=== PATIENT | female | born 1925 | race Caucasian/White ===

== ENCOUNTER 2016-09-20 21:46 | Inpatient (IN) | payer MEDICARE, BC ==
[2016-09-20] MEDS ORDERED: RX INFO: IV CONTRAST WAS GIVEN 1 EACH MISC MISCELLANE PRN (21:51)
[2016-09-20] MEDS ORDERED: SODIUM CHLORIDE 0.9% 1,000 ML IV STA (21:51)
[2016-09-20 22:22] LABS: Glucose,Whole Blood 167 mg/dL (75-99)
[2016-09-20 22:26] LABS: Basophils # (A) 0.1 k/uL (0-0.2); Basophils % (A) 2 %; CH 29.5; CHCM 33.6; Eosinophils # (A) 0.1 k/uL (0-0.7); Eosinophils % (A) 1 %; HCT 35.6 % (34.0-46.0); HGB 11.7 gm/dL (11.4-16.0); Luc # (Auto) 0.05; Luc % (Auto) 1; Lymphocytes # (A) 0.6 k/uL (1.0-4.8); Lymphocytes % (A) 15 %; MCH 28.9 pg (25.0-35.0); MCHC 32.8 g/dL (31.0-37.0); MCV 88.3 fL (80.0-100.0); Mean Platelet Volume 7.6; Monocytes # (A) 0.4 k/uL (0-1.0); Monocytes % (A) 8 %; Neutrophils # (A) 3.1 k/uL (1.3-7.7); Neutrophils % (A) 73 %; RBC 4.03 m/uL (3.80-5.40); RDW 14.4 % (11.5-15.5); WBC 4.3 k/uL (3.8-10.6); WBC (Perox) 4.59
--- NOTE | 2016-09-20 22:26 | CT ---
EXAMINATION TYPE: CT brain wo con DATE OF EXAM: 09/20/2016 10:06 PM COMPARISON: MRI brain 05/03/2016 HISTORY: Code stroke. History of neural deficits CT DLP: 1284.9 mGycm Automated exposure control for dose reduction was used. FINDINGS: There is increased subarachnoid space in the left frontal temporal parietal area compared to right an d is most likely chronic in nature without significant change since previous MRI study of 05/03/2016 a nd is probably related to atrophic changes of left cerebral hemisphere. There is also increased subar achnoid space in the right frontal area including right side of falx probably related to asymmetric a trophic changes of the brain. The cortical sulci and ventricles are prominent with age-related atrophic changes and chronic changes . Periventricular white matter ischemic changes are noted bilaterally of chronic nature. Old infarcti on changes are suggested in the left temporal parietal area with adjacent atrophic changes of brain. There is also evidence of moderate hypertrophic changes of cerebellum more on the left side. There is no acute intracranial hemorrhage, mass effect, or midline shift identified. The globes are intact and the visualized sinuses are clear. IMPRESSION: No acute intracranial hemorrhage, mass effect, or midline shift is seen. Atrophic changes of brain of chronic nature without significant change since previous MRI study. Compliance Clerk summer white matter ischemic changes. Suggestion of old infarction changes in the left temporal area. Po ssibility of old inflammatory or infectious process of brain cannot be excluded. If clinical symptoms persist a follow-up with MRI or CT scan in 24 to 48 hours may be helpful.
--- NOTE | 2016-09-20 22:28 | ED ---
General Adult HPI - General Chief complaint: Neuro Symptoms/Deficit Stated complaint: CVA symptoms Time Seen by Provider: 09/20/16 21:50 Source: patient, EMS, RN notes reviewed Mode of arrival: EMS Limitations: physical limitation - History of Present Illness Initial comments: Patient is a pleasant 89-year-old female presenting to emergency Department with left-sided weakness. Onset was between 8:30 and 840. Patient got up from using the restroom and was unable to walk. EMS arrived and found near flaccid paralysis on the left side. Left upper and lower extremity. Patient had questionable left facial droop. Patient denies confusion. No reported confusion or speech problems. EMS reports patient symptoms have dramatically improved since original arrival. Patient states she feels normal at this time. - Related Data Home Medications Medication Instructions Recorded Confirmed Omeprazole [PriLOSEC] 20 mg PO AC-BRKFST 06/08/14 07/10/14 PARoxetine [Paxil] 20 mg PO DAILY 07/10/14 07/10/14 Previous Rx's Medication Instructions Recorded Atorvastatin [Lipitor] 80 mg PO DAILY #30 tab 06/10/14 Clopidogrel [Plavix] 75 mg PO DAILY #30 tab 06/10/14 Isosorbide Mononitrate [Ismo] 20 mg PO BID@0700,1400 #60 tab 06/10/14 Metoprolol Tartrate [Lopressor] 25 mg PO BID #60 tab 06/10/14 Nitroglycerin Sl Tabs [Nitrostat] 0.4 mg SUBLINGUAL Q5M PRN #25 tab 06/10/14 ALPRAZolam [Xanax] 0.25 mg PO TID PRN #30 tab 07/11/14 Aspirin EC [Ecotrin] 81 mg PO DAILY #30 tablet. 07/11/14 Allergies Allergy/AdvReac Type Severity Reaction Status Date / Time Penicillins Allergy Rash/Hives Verified 07/10/14 20:56 Review of Systems ROS Statement: Those systems with pertinent positive or pertinent negative responses have been documented in the HPI. ROS Other: All systems not noted in ROS Statement are negative. Constitutional: Denies: fever Eyes: Denies: eye pain ENT: Denies: ear pain Respiratory: Denies: cough Cardiovascular: Denies: chest pain Endocrine: Denies: fatigue Gastrointestinal: Denies: abdominal pain Genitourinary: Denies: dysuria Musculoskeletal: Denies: back pain Skin: Denies: rash Neurological: Reports: weakness, abnormal gait. Denies: headache, numbness, paresthesias, confusion Past Medical History Past Medical History: GERD/Reflux, Hyperlipidemia, Hypertension, Myocardial Infarction ([place]), Osteoarthritis (OA) Additional Past Medical History / Comment(s): UTI Last Myocardial Infarction Date:: UNK History of Any Multi-Drug Resistant Organisms: None Reported Past Surgical History: Heart Catheterization, Hysterectomy Additional Past Surgical History / Comment(s): cataracts Past Anesthesia/Blood Transfusion Reactions: Motion Sickness Past Psychological History: Anxiety Additional Psychological History / Comment(s): PAXIL Smoking Status: Never smoker Past Alcohol Use History: None Reported Past Drug Use History: None Reported - Past Family History Father Family Medical History: Unable to Obtain Additional Family Medical History / Comment(s): AT AGE 60 UNSURE OF HX, BLEEDING ULCERS Mother Family Medical History: CVA/TIA, Hyperlipidemia, Hypertension Additional Family Medical History / Comment(s): AT AGE 87 General Exam Limitations: physical limitation General appearance: alert, in no apparent distress Head exam: Present: atraumatic Eye exam: Present: normal appearance, PERRL, EOMI. Absent: nystagmus ENT exam: Present: normal oropharynx Neck exam: Present: normal inspection Respiratory exam: Present: normal lung sounds bilaterally Cardiovascular Exam: Present: regular rate, normal rhythm GI/Abdominal exam: Present: soft. Absent: tenderness Extremities exam: Present: normal inspection Neurological exam: Present: alert, oriented X3, CN II-XII intact Expanded Patient oriented to: Present: person, place, time Speech: Present: fluid speech Cranial nerves: EOM's Intact: Normal, Facial Sensation: Normal Cerebellar function: Finger to Nose: Normal Sensory exam: Upper Extremity Light Touch: Normal, Lower Extremity Light Touch: Normal Motor strength exam: RUE: 5, LUE: 4, RLE: 5, LLE: 4 Eye Response: (4) open spontaneously Motor Response: (6) obeys commands Verbal Response: (5) oriented Psychiatric exam: Present: normal affect, normal mood Skin exam: Absent: rash Course Vital Signs 09/20/16 09/20/16 21:47 22:05 Temperature 98.1 F Pulse Rate 69 69 Respiratory 16 16 Rate Blood Pressure 138/87 163/70 O2 Sat by Pulse 99 100 Oximetry - Reevaluation(s) Reevaluation #1: 09/20/16 22:16 Case discussed with interventional list, Dr. Mina who agrees TPA is not indicated secondary to rapid improving of symptoms and minimal symptoms. He is also concerned with TPA and age EKG Findings - EKG Comments: EKG Findings:: Normal sinus rhythm 66. Normal intervals. Normal axis. Normal QRS. Normal ST-T. Medical Decision Making - Medical Decision Making Patient reexamined and even further improved. Patient updated on results and plan. Case was discussed with practitioner Lashaun gomez, who will admit for Dr. Garsia, covering for Dr. Boo. - Lab Data Result diagrams: 09/20/16 22:14 09/20/16 22:14 Lab Results 09/20/16 09/20/16 09/20/16 Range/Units 22:14 22:14 22:21 WBC 4.3 (3.8-10.6) k/uL RBC 4.03 (3.80-5.40) m/uL Hgb 11.7 (11.4-16.0) gm/dL Hct 35.6 (34.0-46.0) % MCV 88.3 (80.0-100.0) fL MCH 28.9 (25.0-35.0) pg MCHC 32.8 (31.0-37.0) g/dL RDW 14.4 (11.5-15.5) % Plt Count 187 (150-450) k/uL Neutrophils % 73 % Lymphocytes % 15 % Monocytes % 8 % Eosinophils % 1 % Basophils % 2 % Neutrophils # 3.1 (1.3-7.7) k/uL Lymphocytes # 0.6 L (1.0-4.8) k/uL Monocytes # 0.4 (0-1.0) k/uL Eosinophils # 0.1 (0-0.7) k/uL Basophils # 0.1 (0-0.2) k/uL Sodium 135 L (137-145) mmol/L Potassium 4.8 (3.5-5.1) mmol/L Chloride 102 (98-107) mmol/L Carbon Dioxide 22 (22-30) mmol/L Anion Gap 11 mmol/L BUN 27 H (7-17) mg/dL Creatinine 1.07 H (0.52-1.04) mg/dL Est GFR (MDRD) Af Amer 59 (>60 ml/min/1.73 sqM) Est GFR (MDRD) Non-Af 48 (>60 ml/min/1.73 sqM) Glucose 162 H (74-99) mg/dL POC Glucose (mg/dL) 167 H (75-99) mg/dL POC Glu Wallpaper Cleaner ID Dori Gomez Calcium 8.1 L (8.4-10.2) mg/dL Total Bilirubin 0.5 (0.2-1.3) mg/dL AST 30 (14-36) U/L ALT 29 (9-52) U/L Alkaline Phosphatase 87 (38-126) U/L Total Protein 5.8 L (6.3-8.2) g/dL Albumin 3.3 L (3.5-5.0) g/dL - Radiology Data Radiology results: image reviewed (Computed tomography scan shows atrophy and chronic changes without acute abnormality. CT angios shows some stenosis, up to 70%. ) Disposition Clinical Impression: Transient cerebral ischemia Disposition: ADMITTED IP TO THIS HOSP
[2016-09-20 22:33] LABS: Calcium 8.1 mg/dL (8.4-10.2); Potassium 4.8 mmol/L (3.5-5.1); Total Bilirubin 0.5 mg/dL (0.2-1.3); Total Protein 5.8 g/dL (6.3-8.2)
[2016-09-20 22:42] LABS: Prothrombin Time 10.5 sec (9.0-12.0)
--- NOTE | 2016-09-20 22:43 | CT ---
EXAMINATION TYPE: CT angio head neck DATE OF EXAM: 09/20/2016 10:19 PM COMPARISON: CT brain 09/20/2016. HISTORY: Code stroke CT DLP: 1284.9 mGycm Automated exposure control for dose reduction was used. TECHNIQUE: Performed with IV Contrast, patient injected with 100 mL of Visipaque 320. Multiple axial images, coronal and the sagittal reconstruction images and 3-D MIP images of the head and neck arterial structures was performed. FINDINGS: CTA head: [place] arterial structures appear grossly unremarkable including anterior cerebral, mid dle and posterior cerebral arteries, visualized anterior communicating and posterior communicating ar teries without significant aneurysm, AV malformation or stenosis. CTA NECK: Aortic arch: Mild atherosclerotic calcification is noted in the aortic arch. The origins of great ve ssels showed mild atheromatous changes without significant aneurysm. Right carotid artery: Right common carotid artery appears unremarkable. Right carotid bulb showed mild to moderate atherosclerotic plaques with extension into the right int ernal and external carotid arteries. There is approximately less than 50% narrowing in the right [place] tid bulb. Right internal carotid artery: There is less than 50% narrowing in the right internal carotid artery with atheromatous calcification. Right external carotid artery: There are severe atherosclerotic plaques with greater than 70% stenosi s in the right external carotid artery. Left carotid artery: Left common carotid artery showed no significant atheromatous changes. Left carotid bulb showed mild atheromatous plaques with less than 50% narrowing. Left internal carotid artery showed mild atheromatous changes with a less than 50% narrowing in the p roximal portion. Left external carotid artery showed mild atheromatous changes with a less than 50% narrowing in the p roximal portion. Vertebral arteries: Appear unremarkable without significant stenosis. Visualized lung rodríguez showed chronic lung changes. Soft tissues of neck appear grossly unremarkable. Moderate degenerative changes are present in the cervical spine. IMPRESSION: 1. [place] ARTERIAL STRUCTURES APPEAR GROSSLY UNREMARKABLE. 2. SEVERE ATHEROSCLEROTIC CALCIFICATION IN THE RIGHT PROXIMAL EXTERNAL CAROTID ARTERY WITH GREATER TH AN 70% STENOSIS. 3. MILD TO MODERATE ATHEROMATOUS CHANGES WITH A LESS THAN 50% NARROWING IN THE RIGHT INTERNAL CAROTI D ARTERY. 4. MILD TO MODERATE ATHEROMATOUS CHANGES WITH A LESS THAN 50% NARROWING IN THE LEFT CAROTID BULB AND LEFT INTERNAL AND EXTERNAL CAROTID ARTERIES IN THE PROXIMAL PORTION.
[2016-09-20] MEDS ORDERED: ASPIRIN 325 MG TAB PO STA (22:50)
[2016-09-20 22:55] LABS: Creatine Kinase MB 0.9 ng/mL (0.0-2.4); Troponin I 0.021 ng/mL (0.000-0.034)
[2016-09-20 22:57] LABS: Partial Thromboplastin Time 19.2 sec (22.0-30.0)
--- NOTE | 2016-09-20 23:34 | XR ---
EXAMINATION TYPE: XR chest 1V portable DATE OF EXAM: 09/20/2016 11:19 PM COMPARISON: 07/10/2014 HISTORY: Code stroke AMS. TECHNIQUE: Single frontal view of the chest is obtained. FINDINGS: There is mild opacities in both lung bases suggestive of mild bilateral pleural effusions and bibasil ar lung infiltrates and atelectasis. There is mild cardiomegaly and atherosclerotic calcification in the aortic arch. Mild degenerative arthritic changes in both shoulder joints. IMPRESSION: 1. Suggestion of mild bilateral pleural effusions and bibasilar lung infiltrates and atelectasis. 2. Mild cardiomegaly.
[2016-09-20] MEDS: SODIUM CHLORIDE 0.9% 1,000 ML IV SCH (23:36)
[2016-09-21 00:20] VITALS: BMI 25.7
[2016-09-21] MEDS ORDERED: LISINOPRIL 10 MG TAB PO STA (01:23)
[2016-09-21] MEDS: SODIUM CHLORIDE 0.9% 1,000 ML IV SCH ×2 (10:09→20:30)
--- NOTE | 2016-09-21 10:23 | US ---
EXAMINATION TYPE: US carotid duplex BILAT DATE OF EXAM: 09/21/2016 8:32 AM COMPARISON: CTA neck from yesterday. CLINICAL HISTORY: TIA. Admitted for neuro deficits one day earlier. EXAM MEASUREMENTS: RIGHT: Peak Systolic Velocity (PSV) cm/sec ----- Right CCA: 42.4 ----- Right ICA: 81.4 ----- Right ECA: 103.6 ICA/CCA ratio: 1.9 RIGHT: End Diastole cm/sec ----- Right CCA: 7.3 ----- Right ICA: 19.5 ----- Right ECA: 6.9 LEFT: Peak Systolic Velocity (PSV) cm/sec ----- Left CCA: 47.2 ----- Left ICA: 114.9 ----- Left ECA: 61.3 ICA/CCA ratio: 2.4 LEFT: End Diastole cm/sec ----- Left CCA: 10.2 ----- Left ICA: 23.1 ----- Left ECA: 7.4 VERTEBRALS (direction of flow): Right Vertebral: Antegrade Left Vertebral: Antegrade TECHNOLOGIST IMPRESSION: Heterogeneous plaque seen bilaterally. Grayscale images show moderate plaque at right carotid bulb extending into proximal internal and exte rnal carotid arteries confirmed. Velocity measurements and ratios in visualized portion of both inter nal and external carotid arteries is within normal limits. Imaging of the left neck shows similar moderate plaque at carotid bulb extending into proximal director internal communications al and external carotid arteries. Velocity measurements and ratios the visualized portion of both internal carotid arteries remains wit hin normal limits. Slightly more tortuous course to left internal carotid artery is seen on recent CT A exam. IMPRESSION: Moderate atherosclerotic change in bilateral carotid bulbs without hemodynamically signi ficant stenosis identified in either internal carotid artery. Findings correlate with recent CTA neck study which is noted more sensitive. Criteria for Assigning % of Stenosis / Diameter reduction (Estimation based on the indirect measurements of the internal carotid artery velocities (ICA PSV). 1. Normal (no stenosis)=ICA PSV < 125 cm/s: ratio < 2.0: ICA EDV<40 cm/s. 2. Less than 50% stenosis=ICA PSV < 125 cm/s: ratio < 2.0: ICA EDV<40 cm/s. 3. 50 to 69% stenosis=ICA PSV of 125 to 230 cm/s: ration 2.0 ? 4.0: ICA EDV 40-100 cm/s. 4. Greater than 70% stenosis to near occlusion= ICA PSV > 230 cm/s: ratio > 4.0: ICA EDV > 100 cm/s. 5. Near occlusion= ICA PSV velocities may be low or undetectable: variable ratio and ICA EDV. 6. Total occlusion=unable to detect flow.
--- NOTE | 2016-09-21 10:29 | ECHOF ---
Referral Reason:Thrombus MEASUREMENTS -------- HEIGHT: 162.6 cm WEIGHT: 68.0 kg BP: IVSd: 1.5 cm (0.6 - 1.1) LVIDd: 3.6 cm (3.9 - 5.3) LVPWd: 1.3 cm (0.6 - 1.1) IVSs: 1.8 cm LVIDs: 1.0 cm LVPWs: 1.6 cm Ao Diam: 3.1 cm (2.0 - 3.7) AV Cusp: 1.3 cm (1.5 - 2.6) LA Diam: 3.9 cm (2.7 - 3.8) MV EXCURSION: 10.759 mm (> 18.000) MV EF SLOPE: 102 mm/s (70 - 150) EPSS: 0.8 cm MV E Juanito: 0.53 m/s MV DecT: 299 ms MV A Juanito: 1.11 m/s MV E/A Ratio: 0.48 RAP: 5.00 mmHg RVSP: 9.20 mmHg FINDINGS -------- Sinus rhythm. This was a technically good study. There is mild concentric left ventricular hypertrophy. Overall left ventricular systolic function is normal with, an EF between 55 - 60 %. The right ventricle is normal in size and function. The left atrium is normal in size. The right atrium is normal in size. Aortic valve is trileaflet and is mildly thickened. The mitral valve leaflets are mildly thickened. Mild mitral regurgitation is present. Mild tricuspid regurgitation present. Pulmonic valve appears structurally normal. The aortic root size is normal. The pericardium is normal. CONCLUSIONS -------- 1. Sinus rhythm. 2. Mild mitral regurgitation is present. 3. Mild tricuspid regurgitation present. 4. Pulmonic valve appears structurally normal. 5. The aortic root size is normal. 6. The pericardium is normal. 7. This was a technically good study. 8. There is mild concentric left ventricular hypertrophy. 9. Overall left ventricular systolic function is normal with, an EF between 55 - 60 %. 10. The right ventricle is normal in size and function. 11. The left atrium is normal in size. 12. The right atrium is normal in size. 13. Aortic valve is trileaflet and is mildly thickened. 14. The mitral valve leaflets are mildly thickened. SURVEILLANCE MANAGER: Ami Cleveland RDCS
[2016-09-21] MEDS ORDERED: NON-FORMULARY DRUG (Aspirin Ec 81 MG) PO SCH (10:30)
[2016-09-21] MEDS: CLOPIDOGREL 75 MG TAB PO SCH (10:53)
[2016-09-21] MEDS: NITROFURANTOIN MONOHYD/M-CRYST 100 MG CAP PO SCH (10:53)
--- NOTE | 2016-09-21 15:19 | P.HPIM ---
History of Present Illness H&P Date: 09/21/16 Chief Complaint: Left-sided weakness 89-year-old female with history of a previous stroke comes in to the hospital with left-sided place of paralysis the onset of time was around 8:30 in the AM. Patient improved significantly without any intervention in the ER. Patient apparently has a history of a similar episode in the past. Patient underwent MRI of the brain in June 2016 at which time patient was noted to have some concern for autoimmune etiology in the brain. Patient underwent a autoimmune panel done by Dr. Taylor rheumatoid factor was negative in a appears to be negative. There is some degree of B12 deficiency that is noted on the laboratory values. Patient stated that her left-sided weakness with sudden onset caused her gait to be in appropriate denies having any change in speech. Patient also noted some weakness on the left upper extremity. Her graft ER physician's note was noted to have some facial droop as well in addition to the above-described symptomatology. At the time of my examination patient appears to be within her normal self. Denies having a headache, blurry vision, nausea, vomiting, chest pressure, difficulty breathing at this time. A carotid study did not reveal a significant stenosis. Echocardiogram revealed a normal ejection fraction. Review of Systems All systems: negative (Noted in HPI) Past Medical History Past Medical History: GERD/Reflux, Hyperlipidemia, Hypertension, Myocardial Infarction ([place]), Osteoarthritis (OA) Additional Past Medical History / Comment(s): UTI Last Myocardial Infarction Date:: UNK History of Any Multi-Drug Resistant Organisms: None Reported Past Surgical History: Heart Catheterization, Hysterectomy Additional Past Surgical History / Comment(s): cataracts Past Anesthesia/Blood Transfusion Reactions: Motion Sickness Past Psychological History: Anxiety Additional Psychological History / Comment(s): PAXIL Smoking Status: Never smoker Past Alcohol Use History: None Reported Past Drug Use History: None Reported - Past Family History Father Family Medical History: Unable to Obtain Additional Family Medical History / Comment(s): AT AGE 60 UNSURE OF HX, BLEEDING ULCERS Mother Family Medical History: CVA/TIA, Hyperlipidemia, Hypertension Additional Family Medical History / Comment(s): AT AGE 87 Medications and Allergies Home Medications Medication Instructions Recorded Confirmed Type Omeprazole [PriLOSEC] 20 mg PO AC-BRKFST 06/08/14 09/21/16 History ALPRAZolam [Xanax] 0.25 mg PO DAILY PRN 09/21/16 09/21/16 History Aspirin EC [Ecotrin Low Dose] 81 mg PO DAILY 09/21/16 09/21/16 History Hydrochlorothiazide [Hydrodiuril] 25 mg PO DAILY 09/21/16 09/21/16 History Meclizine [Antivert] 12.5 mg PO TID PRN 09/21/16 09/21/16 History Metoprolol Tartrate [Lopressor] 50 mg PO BID 09/21/16 09/21/16 History Nitrofurantoin Monohyd/M-Cryst 100 mg PO DAILY 09/21/16 09/21/16 History [Macrobid] Allergies Allergy/AdvReac Type Severity Reaction Status Date / Time Penicillins Allergy Rash/Hives Verified 07/10/14 20:56 Physical Exam Vitals: Vital Signs Temp Pulse Resp BP BP Pulse Ox 09/21/16 11:12 97.4 F L 70 18 124/67 98 09/21/16 08:35 97.9 F 72 14 136/84 09/21/16 08:31 72 14 09/21/16 04:00 63 18 09/21/16 00:00 96.5 F L 63 18 185/81 96 09/20/16 23:41 191/92 09/20/16 23:05 16 167/76 99 Intake and Output 09/21/16 09/21/16 09/21/16 06:59 14:59 22:59 Intake Total 120 Output Total 400 400 Balance -400 -280 Intake: Oral 120 Output: Urine 400 400 Other: Voiding Method Toilet Diaper # Bowel Movements 1 Weight 68.3 kg Gen. appearance alert oriented 3 no distress Lungs good air entry clear to auscultation no rhonchi wheezing or crackles appreciated Heart S1-S2 heard regular rate and rhythm no murmurs appreciated Abdomen soft nontender no organomegaly bowel sounds intact Neurologically cranial nerves to till 12 grossly intact Muscle strength is 5 out of 5 in all 4 extremities. No sensory deficits appreciated Lower extremity is no edema noted. Results CBC & Chem 7: 09/20/16 22:14 09/20/16 22:14 Thrombosis Risk Factor Assmnt - Choose All That Apply Each Risk Factor Represents 3 Points: Age 75 years or older Thrombosis Risk Factor Assessment Total Risk Factor Score: 3 Thrombosis Risk Factor Assessment Level: Moderate Risk Assessment and Plan Plan: #1 89-year-old with left-sided weakness consistent with cerebral vascular accident of the right MCA region #2 CAD #3 history of abnormal MRI concerning for some autoimmune etiology #4 B12 deficiency #5 history of hypertension #6 dyslipidemia #7 history of peripheral vertigo. Plan Consult Dr. Taylor. Previous labs are reviewed. Carotid Doppler and echocardiogram were reviewed. Patient will be kept on a diabetes manager. ABCDs 2 score Continue ongoing care frequent neuro checks. Fall precautions. PT OT consult.
[2016-09-21] MEDS: LISINOPRIL 10 MG TAB PO SCH (20:29)
[2016-09-21] MEDS: METOPROLOL TARTRATE 50 MG TAB PO SCH (20:29)
--- NOTE | 2016-09-21 22:18 | CONS ---
DATE OF CONSULTATION: 09/21/2016 CHIEF COMPLAINT: Transient ischemic attack. HISTORY OF PRESENT ILLNESS: Mrs. Sargent is a pleasant 89-year-old, female who is being evaluated by the neurology service per the request of Dr. Garsia for a transient ischemic attack. The patient was brought into [facility] Emergency Room after she suffered a sudden onset of left-sided weakness. The patient believes the weakness involved her upper and lower extremity on the left side. In the emergency room, her symptoms started to improve significantly. A STAT CT scan of the brain was done which showed no acute findings. 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 Generalized atrophy and small-vessel ischemic changes were also seen. A CT angiogram of the brain was done which was normal. The patient did have a carotid Doppler which showed no hemodynamically significant stenosis. A CT angiogram of the neck was done which showed approximately 50% stenosis involving bilateral internal carotid arteries. Her CBC was normal. Her comprehensive metabolic profile showed mild renal insufficiency with a BUN of 27 and creatinine of 1.07. Her cardiac enzymes were negative. At the time of my evaluation, the patient is lying in her bed and appears to be in no acute distress. She reports resolution of her left-sided weakness. She denies any numbness or tingling. The patient was not on any antiplatelet therapy at home. She has been started on aspirin 81 mg daily on this admission. PAST MEDICAL HISTORY: 1. Stroke. 2. Gastroesophageal reflux disease. 3. Dyslipidemia. 4. Hypertension. 5. History of myocardial infarction. 6. Arthritis. 7. History of hysterectomy. 8. History of cataract surgeries. 9. The patient also has history of anxiety disorder. SOCIAL HISTORY: She denies any tobacco, alcohol or drug use. FAMILY HISTORY: Positive for strokes, hypertension and dyslipidemia. HOME MEDICATIONS: Reviewed in the chart. ALLERGIES: PENICILLIN. REVIEW OF SYSTEMS: CONSTITUTIONAL: Negative. EYES: Negative. ENT: Positive for chronic diminished hearing. CARDIOVASCULAR: Positive for history of myocardial infarction. RESPIRATORY: Negative. NEUROLOGICAL: As mentioned above. GASTROINTESTINAL: Positive for occasional heartburn. GENITOURINARY: Positive for recurrent urinary tract infections. PSYCHIATRIC: Positive for history of anxiety disorder. MUSCULOSKELETAL: Positive for occasional joint pain. ENDOCRINE: Negative. DERMATOLOGICAL: Negative. PHYSICAL EXAM: Vital signs show a temperature of 98.2, pulse 84, respiration 16, blood pressure of 183/89. GENERAL APPEARANCE: The patient is a well-developed, elderly female who appears to be in no acute distress. HEENT: Normocephalic, atraumatic. No facial asymmetry is seen. Extraocular muscles are intact. Neck is supple with no masses felt. CARDIOVASCULAR: Regular rate and rhythm. ABDOMEN: Nontender, nondistended. Extremities showed trace edema with no clubbing seen. NEUROLOGICAL EXAM: The patient is alert, aware and oriented x3. Speech and language are normal. Strength is full in all 4 extremities. No pronator drift is seen. Sensory exam was normal to light touch in all 4 extremities. No facial asymmetry is noticed on cranial nerve testing. No seizure-like activity is seen. IMPRESSION: 1. Transient ischemic attack. 2. Left hemiparesis, resolved. 3. Mild to moderate bilateral internal carotid artery stenosis. 4. Renal insufficiency. 5. Hypertension. 6. Dyslipidemia. RECOMMENDATION: The patient does appear to have suffered a transient ischemic attack. Her symptoms have resolved at this time. Her CT scan of the brain did show evidence of an old ischemic stroke, as mentioned above. It is unclear why the patient is not on any antiplatelet therapy. She has been started on aspirin 81 mg daily and she will continue on this after her discharge. I will order a fasting lipid panel, EEG, and serum homocysteine level. Continue IV hydration as tolerated. Continue neuro checks. I will continue to follow with you. Further recommendations to follow. Thank you for allowing me to participate in the care of your patient. If you have any questions, please feel free to contact me.
[2016-09-21] MEDS ORDERED: ASPIRIN 325 MG TAB PO SCH (22:51)
[2016-09-22 07:30] LABS: HDL Cholesterol 54 mg/dL (40-60); Triglycerides 156 mg/dL (<150)
[2016-09-22 07:54] LABS: Cholesterol 343 mg/dL (<200)
[2016-09-22] MEDS: SODIUM CHLORIDE 0.9% 1,000 ML IV SCH ×2 (09:21→17:24)
[2016-09-22] MEDS: NITROFURANTOIN MONOHYD/M-CRYST 100 MG CAP PO SCH (09:22)
[2016-09-22] MEDS: METOPROLOL TARTRATE 50 MG TAB PO SCH ×2 (09:22→22:18)
[2016-09-22] MEDS: CLOPIDOGREL 75 MG TAB PO SCH (09:23)
[2016-09-22] MEDS: ASPIRIN 81 MG CHEW PO SCH (09:23)
[2016-09-22] MEDS: ATORVASTATIN 80 MG TAB PO SCH (09:23)
--- NOTE | 2016-09-22 11:29 | CDI ---
In responding to this query, please exercise your independent professional judgment. The [facility] Coding Staff and Clinical Documentation Specialists appreciate your assistance in clarifying documentation, maintaining compliance with coding guidelines, accurately documenting patients condition and capturing severity of illness. The fact that a question is asked does not imply that any particular answer is desired or expected. Communication forms are a method of clarifying documentation and are not made part of the Legal Health Record. Thank you in advance for your clarification. Last Revision, July 2015 Keenan Calloway [address] [place] [address] Documentation Clarification Form Date: 09/22/2016 11:20:00 AM From: Amie De Paz CCS, CCDS Admit Date: 09/20/2016 10:50:00 PM Patient Name: Hilary Sargent Visit Number: [id number] Discharge Date: Dr. Maximilian Rice: Patient presents with a BUN 27, Creatinine 1.07, GFR 48 History/Risk Factors: Previous CVA, Hypertension, RI, UTI. Clinical Indicators: 89 yo female, presented with stroke symptoms, now resolved. Initial lab values per above, no history of CKD documented. Renal insufficiency documented. Treatment: IV fluids, neuro checks, swallow screen, imaging: CT Brain, Carotid Doppler, CT Angiogram. Consults: Neurology, PT/OT/ST In order to capture the severity of condition, please clarify if the condition signifies: Acute renal failure Please specify (if known): Cortical, Medullary, or Tubular Necrosis? Acute kidney injury Acute on chronic renal failure Chronic renal failure, please stage Chronic kidney disease (CKD) and please stage o Stage 1 GFR >90 o Stage 2 GFR 60-89 o Stage 3 GFR 30-59 o Stage 4 GFR 15-29 o Stage 5 GFR <15 o ESRD Unable to determine Other, specify Please document in your progress notes and discharge summary in order to capture severity of illness and risk of mortality. Include clinical findings that support your diagnosis. FYI: Press F11 to launch patient chart. Place X here if this finding has no clinical significance, is not applicable or if you are not able to provide any additional documentation. Thank You. MARCIE
[2016-09-22] MEDS ORDERED: PANTOPRAZOLE 40 MG TABLET PO STA (11:58)
--- NOTE | 2016-09-22 16:24 | P.PN ---
Subjective Principal diagnosis: Patient is a pleasant 89-year-old female who is being followed by the neurology service for transient ischemic attack. Patient had onset of left- sided weakness which has since subsided. Computed tomography scan of the brain was done which showed no acute process. There was evidence of old ischemic stroke involving the left temporal lobe. Generalized atrophy and small vessel ischemic changes were also seen. A CT angiogram of the brain was done which was normal. Carotid Doppler showed no hemodynamically significant stenosis. At the time of my evaluation, patient is resting comfortably in bed and appears to be in no acute distress. Objective - Vital Signs Vital signs: Vital Signs Temp 97.6 F 09/22/16 15:20 Pulse 74 09/22/16 15:20 Resp 16 09/22/16 15:20 BP 157/80 09/22/16 15:20 Pulse Ox 97 09/22/16 15:20 Intake & Output 09/21/16 09/22/16 09/22/16 18:59 06:59 18:59 Intake Total 240 180 600 Output Total 400 650 400 Balance -160 -470 200 Weight 74.7 kg Intake: IV 300 Sodium Chloride 0.9% 1, 300 000 ml @ 100 mls/hr IV . Q10H [facility] Rx#:[id number] Oral 240 180 300 Output: Urine 400 650 400 Other: Voiding Method Toilet Toilet Diaper Diaper # Voids 2 1 # Bowel Movements 1 0 - Exam PHYSICAL EXAM: GENERAL APPEARANCE: Patient is a well-developed, female who appears to be in no acute distress. HEENT: Normocephalic, atraumatic, no facial asymmetry is seen. Neck is supple with no masses felt. CARDIOVASCULAR: Regular rate and rhythm. ABDOMEN: Nontender, nondistended. EXTREMITIES: Show no edema or clubbing. NEUROLOGICAL EXAM: Patient is awake, alert, and oriented 3. Speech and language are normal. Strength is full in all 4 extremities. Sensory exam is normal to light touch in all 4 extremities. No pronator drift is seen. No facial asymmetry is seen on cranial nerve testing. No tremors or seizure-like activity is noted. - Labs CBC & Chem 7: 09/20/16 22:14 09/20/16 22:14 Labs: Abnormal Lab Results - Last 24 Hours (Table) 09/22/16 Range/Units 06:13 Triglycerides 156 H (<150) mg/dL Cholesterol 343 H (<200) mg/dL LDL Cholesterol, Calc 258 H (0-99) mg/dL Assessment and Plan Plan: Impression: 1. Transient ischemic attack 2. Left hemiparesis, resolved 3. 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 Renal insufficiency 5. Hypertension 6. Dyslipidemia Recommendation patient does appear to have suffered a transient ischemic attack. Her symptoms have resolved at this time. As you recall, her computed tomography scan of the brain did show evidence of an old ischemic stroke but did not show any acute process. I recommend continuing patient on aspirin 81 mg daily. Fasting lipid panel was elevated and I recommend continuing statin therapy. Homocystine level is pending. EEG was done and results are pending. Continue neurological checks. I will continue to follow with you. Further recommendations to follow. I performed an examination of the patient and discussed the management with the AIRCRAFT INSPECTION RECORD CLERK. I have reviewed the AIRCRAFT INSPECTION RECORD CLERK notes and agree with the findings and plan of care.
[2016-09-22] MEDS ORDERED: MECLIZINE 12.5 MG TAB PO PRN (17:36)
[2016-09-22] MEDS ORDERED: NITROGLYCERIN SL TABS 0.4 MG TAB SUBLINGUAL PRN (17:36)
[2016-09-22] MEDS ORDERED: MELATONIN 3 MG TABLET PO SCH (21:00)
[2016-09-22] MEDS: HEPARIN SODIUM,PORCINE 5,000 UNIT/ML 1 ML VIAL SQ SCH (21:20)
[2016-09-22] MEDS: LISINOPRIL 10 MG TAB PO SCH (22:19)
--- NOTE | 2016-09-22 23:09 | PN ---
DATE OF SERVICE: 09/22/2016 This 89-year-old woman who was admitted with left-sided weakness was also thought to have a right MCA territory infarction. The CT scan showed old left temporal lobe infarction with significant cerebral atrophy also. The patient is confused. The patient is being closely monitored. Patient has gait dysfunction also. PT, OT, social services technician and Neurology are following the patient closely. Neurovascular workup is underway. Carotid Doppler which is reviewed showed moderate atherosclerotic changes. The other significant finding was extremely elevated cholesterol at 343 and LDL is 258, triglycerides 156. Past medical history reviewed. Review of systems could not be taken; the patient is mildly confused. Current medications are reviewed and include: 1. Ecotrin 81 mg. 2. Lipitor 80 mg. 3. Plavix. 4. Zestril. 5. Lopressor. 6. Macrobid. 7. Protonix. PHYSICAL EXAMINATION: The patient is conscious, confused. Pulse 74, blood pressure 157/80, respiration 16, temperature 97.6, pulse ox 97% on room air. HEENT: Conjunctivae normal. Oral mucosa moist. NECK: No jugular venous distention. No carotid bruit. No lymph node enlargement. CARDIOVASCULAR SYSTEM: S1, S2 muffled. No murmur. No thrills. RESPIRATORY SYSTEM: Breath sounds diminished at the bases. A few scattered rhonchi. ABDOMEN: Soft, non-tender. No mass palpable. LEGS: No edema. No swelling. NERVOUS SYSTEM: Moves all 4 limbs. Mild diffuse weakness. No signs of cerebellar dysfunction. LYMPHATICS: No lymph node palpable in neck, axilla or groin. SKIN: No ulcer, rash, bleeding. LABS: CBC within normal limits. Creatinine is 1.07. ASSESSMENT: 1. Weakness of the left side with possible acute cerebrovascular accident involving the right middle cerebral artery territory lesions. 2. Old left temporal lobe infarct. 3. Gait dysfunction. 4. Change in mental status, possible metabolic encephalopathy, acute on chronic, multifactorial. 5. History of coronary artery disease. 6. History of B12 deficiency. 7. Hypertension. 8. Dyslipidemia. 9. Increased creatinine with chronic kidney disease, stage III. 10. Hyponatremia. 11. Hypercholesterolemia. 12. Hyperlipidemia. 13. Hypoalbuminemia, mild. 14. Gait dysfunction. 15. Gastroesophageal reflux disease. 16. Hyperlipidemia. 17. History of cardiac catheterization. 18. History of anxiety. RECOMMENDATIONS AND DISCUSSION: In this 89-year-old woman who presented with multiple complex medical issues, we will monitor the patient closely, continue the current medications, continue with symptomatic treatment, continue with aspirin, Lipitor and Plavix. Otherwise, closely follow with Neurology. Other than that, I would recommend PT, OT evaluation, possible ECF rehab. Will also supplement vitamins. See orders for further details. Guarded prognosis because of multiple complex medical issues. Resume the home medications. DVT prophylaxis. Further recommendations to follow.
[2016-09-23 02:09] VITALS: PULSE 68; RESP 16; TEMP 97.7
[2016-09-23 07:09] LABS: Basophils % (A) 0 %; CH 29.1; CHCM 32.2; Eosinophils % (A) 0 %; HCT 34.8 % (34.0-46.0); HDW 2.62; HGB 11.2 gm/dL (11.4-16.0); Luc # (Auto) 0.12; Luc % (Auto) 2; Lymphocytes # (A) 0.9 k/uL (1.0-4.8); Lymphocytes % (A) 13 %; MCH 29.3 pg (25.0-35.0); MCHC 32.3 g/dL (31.0-37.0); MCV 90.8 fL (80.0-100.0); Monocytes # (A) 0.5 k/uL (0-1.0); Monocytes % (A) 8 %; Neutrophils # (A) 5.3 k/uL (1.3-7.7); Neutrophils % (A) 77 %; RBC 3.84 m/uL (3.80-5.40); RDW 14.4 % (11.5-15.5); WBC 6.9 k/uL (3.8-10.6); WBC (Perox) 7.81
[2016-09-23 07:25] LABS: Anion Gap 9 mmol/L; Blood Urea Nitrogen 27 mg/dL (7-17); Calcium 8.3 mg/dL (8.4-10.2); Carbon Dioxide 23 mmol/L (22-30); Chloride 105 mmol/L (98-107); Glucose 113 mg/dL (74-99); Non-African American GFR(MDRD) 57 (>60 ml/min/1.73 sqM); Potassium 4.4 mmol/L (3.5-5.1); Sodium 137 mmol/L (137-145)
[2016-09-23] MEDS ORDERED: PANTOPRAZOLE 40 MG TABLET PO SCH (07:30)
[2016-09-23 09:01] VITALS: BP 136/61
[2016-09-23] MEDS: CLOPIDOGREL 75 MG TAB PO SCH (10:07)
[2016-09-23] MEDS: ASPIRIN 81 MG CHEW PO SCH (10:07)
[2016-09-23] MEDS: ATORVASTATIN 80 MG TAB PO SCH (10:07)
[2016-09-23] MEDS: HEPARIN SODIUM,PORCINE 5,000 UNIT/ML 1 ML VIAL SQ SCH (10:07)
[2016-09-23] MEDS: NITROFURANTOIN MONOHYD/M-CRYST 100 MG CAP PO SCH (10:08)
[2016-09-23] MEDS: METOPROLOL TARTRATE 50 MG TAB PO SCH (10:08)
[2016-09-23] MEDS ORDERED: MULTIVITAMINS, THERA 1 EACH TAB PO SCH (12:00)
[2016-09-23] MEDS ORDERED: FOLIC ACID 1 MG TAB PO SCH (12:00)
[2016-09-23] MEDS ORDERED: THIAMINE 100 MG TAB PO SCH (12:00)
--- NOTE | 2016-09-23 12:42 | DS ---
DATE OF ADMISSION: 09/20/2016 DATE OF DISCHARGE: FINAL DIAGNOSES: 1. Weakness of the left side with possible acute cerebrovascular accident involving the right middle cerebral artery territory. 2. Old left temporal infarct. 3. Gait dysfunction. 4. Change in mental status, possible metabolic encephalopathy, acute on chronic multifactorial. 5. Dementia. 6. History of coronary artery disease. 7. Vitamin B12 deficiency. 8. Hypertension. 9. Dyslipidemia. 10. Increased creatinine with chronic kidney disease Stage III. 11. Hyponatremia. 12. Hypercholesterolemia. 13. Hyperlipidemia. 14. Hypoalbuminemia with mild. 15. Gait dysfunction. 16. History of gastroesophageal reflux disease. 17. History of cardiac catheterization. 18. History of anxiety. 19. FULL CODE. DISCHARGE DISPOSITION: The patient will be discharged in a stable condition with guarded prognosis. The patient will be transferred to [facility]. Total time taken is 35 minutes. HISTORY OF PRESENT ILLNESS: This 89-year-old woman with a past medical history of multiple medical problems was admitted with features of weakness of the left side indicating possible cerebrovascular accident. The patient treated symptomatically. The patient improved significantly. Neurovascular work-up was also done. Dr. Rice saw the patient. The patient improved significantly as mentioned earlier. Sensorium was also improved. On exam, vital signs stable. CARDIOVASCULAR: S1, S2 muffled. Abdomen soft. Central nervous system: Mild diffuse weakness. RESPIRATORY: A few rhonchi. DISCHARGE ADVICE AND MEDICATIONS: 1. Diet is cardiac. 2. Activity limited until follow-up. 3. Continue PT/OT. 4. Follow up with Dr. Franco in 2 weeks. 5. Follow up with Dr. Rice 2 weeks. MEDICATIONS: 1. Xanax 0.25 t.i.d. p.r.n. 2. Ecotrin 81 mg p.o. daily. 3. Lipitor 80 mg p.o. b.i.d. 4. Plavix 75 milligrams p.o. daily. 5. Folic acid 1 mg daily. 6. HydroDIURIL 25 mg daily. 7. Zestril 10 mg q.h.s. 8. Antivert 12.5 mg t.i.d. p.r.n. 9. Melatonin 3 mg q.h.s. p.r.n. for sleep. 10. Lopressor 50 mg p.o. b.i.d. 11. Nitrofurantoin 100 mg p.o. daily. 12. Nitrostat 0.4 sublingual p.r.n. 13. Prilosec 20 mg daily. 14. Thiamine 100 mg p.o. daily. Once again, the patient will be discharged in stable condition with guarded prognosis.
--- NOTE | 2016-09-23 13:01 | EEG ---
DATE OF SERVICE: 09/22/2016 INDICATIONS FOR EXAMINATION: Transient ischemic attack. AGE: 89Y DESCRIPTION OF PROCEDURE: This EEG was performed using a 21 channel digital electroencephalograph, following international 10-20 system. DESCRIPTION OF THE RECORDING: From the beginning of the tracing, with the patient's eyes closed, the background rhythm was mostly consisting of 8 Hz alpha frequency in the posterior occipital leads. No obvious asymmetry is seen. Photic stimulation was performed with no driving response seen. No pathological waves were elicited. Hyperventilation was not performed. Occasional movement artifacts were seen. The patient does reach Stage II of sleep during the tracing and occasional sleep spindles were seen. No epileptiform discharges were seen. Her EKG lead showed regular rate and rhythm. INTERPRETATION: This asleep and awake EEG can be considered within normal limits. There was no asymmetry seen. No epileptiform discharges were noticed. The absence of epileptiform discharges does not rule out the diagnosis of epilepsy. Therefore, clinical correlation is recommended.
== END 2016-09-23 15:05 | DRG 64 ==
LOC: EC 21:46 → 6SEL 22:50 → 3SUR 09-22 10:21
PROVIDERS: ADMIT Hospitalist; ATTEND Hospitalist
DX: I63.541 Cerebral infarction due to unspecified occlusion or stenosis of right cerebellar artery (principal); G93.41 Metabolic encephalopathy; G81.94 Hemiplegia, unspecified affecting left nondominant side; E87.1 Hypo-osmolality and hyponatremia; F03.90 Unspecified dementia, unspecified severity, without behavioral disturbance, psychotic disturbance, mood disturbance, and anxiety; N18.3 Chronic kidney disease, stage 3 (moderate); I12.9 Hypertensive chronic kidney disease with stage 1 through stage 4 chronic kidney disease, or unspecified chronic kidney disease; R26.2 Difficulty in walking, not elsewhere classified; R29.702 NIHSS score 2; E78.5 Hyperlipidemia, unspecified; E53.8 Deficiency of other specified B group vitamins; E78.00 Pure hypercholesterolemia, unspecified; I25.10 Atherosclerotic heart disease of native coronary artery without angina pectoris; K21.9 Gastro-esophageal reflux disease without esophagitis; M19.90 Unspecified osteoarthritis, unspecified site; I25.2 Old myocardial infarction; H81.399 Other peripheral vertigo, unspecified ear; Z86.73 Personal history of transient ischemic attack (TIA), and cerebral infarction without residual deficits; Z90.710 Acquired absence of both cervix and uterus; I65.23 Occlusion and stenosis of bilateral carotid arteries; F41.9 Anxiety disorder, unspecified; E88.09 Other disorders of plasma-protein metabolism, not elsewhere classified; Z98.42 Cataract extraction status, left eye; Z98.41 Cataract extraction status, right eye; Z79.82 Long term (current) use of aspirin; Z79.02 Long term (current) use of antithrombotics/antiplatelets; Z79.899 Other long term (current) drug therapy; Z82.3 Family history of stroke
CPT/HCPCS: 36415; 70450; 70496; 70498; 71010; 80048; 80053; 80061; 82550; 82553; 83090; 84484; 85025; 85610; 85730; 93005; 93306; 93880; 95819; 96360; 99285

== ENCOUNTER 2016-12-08 16:35 | Inpatient (IN) | payer MEDICARE, BC ==
[2016-12-08] MEDS ORDERED: LABETALOL 5 MG/ML VIAL MDV IVP STA (17:12)
[2016-12-08] MEDS ORDERED: SODIUM CHLORIDE 0.9% 1,000 ML IV STA (17:12)
[2016-12-08 17:38] LABS: Basophils % (A) 0 %; CH 29.3; CHCM 32.2; Eosinophils % (A) 1 %; HCT 38.3 % (34.0-46.0); HDW 2.84; HGB 12.2 gm/dL (11.4-16.0); Luc # (Auto) 0.13; Luc % (Auto) 3; Lymphocytes # (A) 0.6 k/uL (1.0-4.8); Lymphocytes % (A) 16 %; MCH 29.2 pg (25.0-35.0); MCHC 31.9 g/dL (31.0-37.0); MCV 91.4 fL (80.0-100.0); Mean Platelet Volume 7.1; Monocytes # (A) 0.4 k/uL (0-1.0); Monocytes % (A) 11 %; Neutrophils # (A) 2.7 k/uL (1.3-7.7); Neutrophils % (A) 69 %; RBC 4.19 m/uL (3.80-5.40); RDW 13.8 % (11.5-15.5); WBC (Perox) 4.01
[2016-12-08 17:54] LABS: INR 0.9 (<1.1); Partial Thromboplastin Time 22.1 sec (22.0-30.0); Prothrombin Time 9.6 sec (9.0-12.0)
[2016-12-08 17:59] LABS: Calcium 9.7 mg/dL (8.4-10.2); Potassium 4.6 mmol/L (3.5-5.1); Total Bilirubin 0.6 mg/dL (0.2-1.3); Total Protein 6.9 g/dL (6.3-8.2)
[2016-12-08 18:15] LABS: Troponin I 0.023 ng/mL (0.000-0.034)
--- NOTE | 2016-12-08 18:17 | CT ---
EXAMINATION TYPE: CT brain wo con DATE OF EXAM: 12/08/2016 6:05 PM COMPARISON: 09/20/2016 HISTORY: Left hand numbness and weakness CT DLP: 1036 mGycm Automated exposure control for dose reduction was used. FINDINGS: There is cerebral cortical atrophy. There is moderate patchy hypodensity in the periventricular white matter. There is noticeable atrophy in the temporal lobes. This is worse on the left side. Calvarium is intact. IMPRESSION: Cerebral atrophy and chronic small vessel ischemia. No acute intracranial abnormality. No change comp ared to last exam.
--- NOTE | 2016-12-08 18:30 | XR ---
EXAMINATION TYPE: XR chest 2V DATE OF EXAM: 12/08/2016 6:20 PM COMPARISON: 09/20/2016 HISTORY: Left hand numbness TECHNIQUE: Frontal and lateral views of the chest are obtained. FINDINGS: Heart is enlarged. There is no heart failure. There are no hilar masses. Thoracic aorta is atheromatous. There are chest leads. There is osteopenia. IMPRESSION: Cardiomegaly. No acute lung disease. No significant change compared to last exam.
[2016-12-08] MEDS ORDERED: ASPIRIN 81 MG CHEW PO STA (18:50)
--- NOTE | 2016-12-08 18:53 | ED ---
General Adult HPI - General Chief complaint: Weakness Stated complaint: Weakness Time Seen by Provider: 12/08/16 16:44 Source: patient Mode of arrival: EMS Limitations: no limitations - History of Present Illness Initial comments: This 89-year-old white female presents complaining of having some left arm weakness. She states that this started before lunch which is likely approximately 5 hours ago. She states that she could not hold onto anything with her left arm at that time. There is no left leg or other extremity weakness. She states that it lasted approximately 4 hours and has resolved by the time I see her. She denies any history of TIA or CVA. She denies any chest pain or shortness of breath. No other complaints or modifying factors. - Related Data Home Medications Medication Instructions Recorded Confirmed Omeprazole [PriLOSEC] 20 mg PO AC-BRKFST 06/08/14 12/08/16 Aspirin EC [Ecotrin Low Dose] 81 mg PO DAILY 09/21/16 12/08/16 Meclizine [Antivert] 12.5 mg PO TID PRN 09/21/16 12/08/16 Nitrofurantoin Monohyd/M-Cryst 100 mg PO DAILY 09/21/16 12/08/16 [Macrobid] Mirtazapine [Remeron] 15 mg PO HS 12/08/16 12/08/16 amLODIPine [Norvasc] 5 mg PO DAILY 12/08/16 12/08/16 Previous Rx's Medication Instructions Recorded Clopidogrel [Plavix] 75 mg PO DAILY #30 tab 06/10/14 Nitroglycerin Sl Tabs [Nitrostat] 0.4 mg SUBLINGUAL Q5M PRN #25 tab 06/10/14 ALPRAZolam [Xanax] 0.25 mg PO DAILY PRN #20 tab 09/23/16 Folic Acid 1 mg PO DAILY@1200 tab 09/23/16 Lisinopril [Zestril] 10 mg PO HS tab 09/23/16 Melatonin 3 mg PO HS tablet 09/23/16 Thiamine [Vitamin B-1] 100 mg PO DAILY@1200 tab 09/23/16 Allergies Allergy/AdvReac Type Severity Reaction Status Date / Time Penicillins Allergy Rash/Hives Verified 12/08/16 17:06 Review of Systems ROS Statement: Those systems with pertinent positive or pertinent negative responses have been documented in the HPI. ROS Other: All systems not noted in ROS Statement are negative. Past Medical History Past Medical History: GERD/Reflux, Hyperlipidemia, Hypertension, Myocardial Infarction (MS), Osteoarthritis (OA) Additional Past Medical History / Comment(s): UTI Last Myocardial Infarction Date:: UNK History of Any Multi-Drug Resistant Organisms: None Reported Past Surgical History: Heart Catheterization, Hysterectomy Additional Past Surgical History / Comment(s): cataracts Past Anesthesia/Blood Transfusion Reactions: Motion Sickness Past Psychological History: Anxiety Additional Psychological History / Comment(s): PAXIL Smoking Status: Never smoker Past Alcohol Use History: None Reported Past Drug Use History: None Reported - Past Family History Father Family Medical History: Unable to Obtain Additional Family Medical History / Comment(s): AT AGE 60 UNSURE OF HX, BLEEDING ULCERS Mother Family Medical History: CVA/TIA, Hyperlipidemia, Hypertension Additional Family Medical History / Comment(s): AT AGE 87 General Exam - General Exam Comments Initial Comments: GENERAL: The patient is well nourished and well hydrated. VITAL SIGNS: Heart rate, blood pressure, respiratory rate reviewed as recorded in nurse's notes. EYES: Pupils are round and reactive. Extraocular movements are intact. No conjunctival / lid redness or swelling. ENT: No external evidence of injury, swelling, or ecchymosis. Airway is patent. Throat is clear. NECK: Nontender. No swelling or evidence of injury. No subcutaneous emphysema. Trachea is midline. No thyroid mass. HEART: Regular rate and rhythm. Good peripheral pulses. LUNGS/CHEST: Breath sounds clear and equal bilaterally. No rales, rhonchi, or wheezes. No ecchymosis, subcutaneous emphysema, or tenderness. ABDOMEN: Abdomen soft without tenderness. No palpable masses or organomegaly. No peritoneal signs. No abdominal wall swelling or ecchymosis. EXTREMITIES: No extremity tenderness. Normal muscle tone and function. No thoracolumbar tenderness. NEUROLOGIC: Sensation is grossly intact. Cranial nerve exam reveals face is symmetrical, tongue is midline, speech is clear. SKIN: No abrasions or ecchymosis is noted. No induration or masses noted. PSYCHIATRIC: Alert and oriented. Appropriate behavior and judgment. Limitations: no limitations Course Vital Signs 12/08/16 12/08/16 12/08/16 16:37 18:42 19:32 Temperature 97.6 F Pulse Rate 103 H 121 H 88 Respiratory 18 16 Rate Blood Pressure 182/85 168/90 161/86 O2 Sat by Pulse 99 97 Oximetry Medical Decision Making - Medical Decision Making The patient was seen and examined. All diagnostics were reviewed. The EKG shows a normal sinus rhythm at a rate of 91. No acute ST-T wave changes are identified. The AR interval is 172, QRS duration is 90, and QTc interval is 452. The patient had a computed tomography scan of brain which did not show any acute processes. The chest x-ray does not show any abnormalities. The laboratory is unremarkable. Is felt as though she likely did have a TIA. She is given an aspirin. It is felt as though she would require admission for further workup and treatment. She is agreeable. Case will be discussed with internal medicine shortly. - Lab Data Result diagrams: 12/08/16 16:45 12/08/16 16:45 Lab Results 12/08/16 12/08/16 12/08/16 Range/Units 16:45 16:45 16:45 WBC 4.0 (3.8-10.6) k/uL RBC 4.19 (3.80-5.40) m/uL Hgb 12.2 (11.4-16.0) gm/dL Hct 38.3 (34.0-46.0) % MCV 91.4 (80.0-100.0) fL MCH 29.2 (25.0-35.0) pg MCHC 31.9 (31.0-37.0) g/dL RDW 13.8 (11.5-15.5) % Plt Count 242 (150-450) k/uL Neutrophils % 69 % Lymphocytes % 16 % Monocytes % 11 % Eosinophils % 1 % Basophils % 0 % Neutrophils # 2.7 (1.3-7.7) k/uL Lymphocytes # 0.6 L (1.0-4.8) k/uL Monocytes # 0.4 (0-1.0) k/uL Eosinophils # 0.0 (0-0.7) k/uL Basophils # 0.0 (0-0.2) k/uL PT (9.0-12.0) sec INR (<1.1) APTT (22.0-30.0) sec Sodium 139 (137-145) mmol/L Potassium 4.6 (3.5-5.1) mmol/L Chloride 105 (98-107) mmol/L Carbon Dioxide 23 (22-30) mmol/L Anion Gap 11 mmol/L BUN 27 H (7-17) mg/dL Creatinine 1.05 H (0.52-1.04) mg/dL Est GFR (MDRD) Af Amer 60 (>60 ml/min/1.73 sqM) Est GFR (MDRD) Non-Af 49 (>60 ml/min/1.73 sqM) Glucose 105 H (74-99) mg/dL Calcium 9.7 (8.4-10.2) mg/dL Total Bilirubin 0.6 (0.2-1.3) mg/dL AST 33 (14-36) U/L ALT 29 (9-52) U/L Alkaline Phosphatase 115 (38-126) U/L Total Creatine Kinase 73 (30-135) U/L CK-MB (CK-2) 2.0 (0.0-2.4) ng/mL CK-MB (CK-2) Rel Index 2.7 Troponin I 0.023 (0.000-0.034) ng/mL Total Protein 6.9 (6.3-8.2) g/dL Albumin 4.0 (3.5-5.0) g/dL 12/08/16 Range/Units 16:45 WBC (3.8-10.6) k/uL RBC (3.80-5.40) m/uL Hgb (11.4-16.0) gm/dL Hct (34.0-46.0) % MCV (80.0-100.0) fL MCH (25.0-35.0) pg MCHC (31.0-37.0) g/dL RDW (11.5-15.5) % Plt Count (150-450) k/uL Neutrophils % % Lymphocytes % % Monocytes % % Eosinophils % % Basophils % % Neutrophils # (1.3-7.7) k/uL Lymphocytes # (1.0-4.8) k/uL Monocytes # (0-1.0) k/uL Eosinophils # (0-0.7) k/uL Basophils # (0-0.2) k/uL PT 9.6 (9.0-12.0) sec INR 0.9 (<1.1) APTT 22.1 (22.0-30.0) sec Sodium (137-145) mmol/L Potassium (3.5-5.1) mmol/L Chloride (98-107) mmol/L Carbon Dioxide (22-30) mmol/L Anion Gap mmol/L BUN (7-17) mg/dL Creatinine (0.52-1.04) mg/dL Est GFR (MDRD) Af Amer (>60 ml/min/1.73 sqM) Est GFR (MDRD) Non-Af (>60 ml/min/1.73 sqM) Glucose (74-99) mg/dL Calcium (8.4-10.2) mg/dL Total Bilirubin (0.2-1.3) mg/dL AST (14-36) U/L ALT (9-52) U/L Alkaline Phosphatase (38-126) U/L Total Creatine Kinase (30-135) U/L CK-MB (CK-2) (0.0-2.4) ng/mL CK-MB (CK-2) Rel Index Troponin I (0.000-0.034) ng/mL Total Protein (6.3-8.2) g/dL Albumin (3.5-5.0) g/dL Disposition Clinical Impression: TIA (transient ischemic attack), Hypertension Disposition: ADMITTED IP TO THIS [facility] Condition: Good Time of Disposition: 20:00 Decision Date: 12/08/16 Decision Time: 20:00
[2016-12-08] MEDS ORDERED: ALPRAZolam 0.25 MG TAB PO PRN (19:05)
[2016-12-08] MEDS ORDERED: MECLIZINE 12.5 MG TAB PO PRN (19:05)
[2016-12-08] MEDS ORDERED: NITROGLYCERIN SL TABS 0.4 MG TAB SUBLINGUAL PRN (19:05)
[2016-12-08] MEDS ORDERED: FAMOTIDINE 20 MG/2 ML VIAL IV SCH (21:00)
[2016-12-08 22:19] VITALS: BMI 28.5
[2016-12-08] MEDS ORDERED: HYDROcodone/APAP 5-325MG 1 EACH TAB PO PRN (22:31)
[2016-12-08] MEDS: ENOXAPARIN 40 MG/0.4 ML SYRINGE SQ SCH (22:43)
[2016-12-08] MEDS: MELATONIN 3 MG TABLET PO SCH (22:43)
[2016-12-08] MEDS: MIRTAZAPINE 15 MG TAB PO SCH (22:44)
[2016-12-08] MEDS: LISINOPRIL 10 MG TAB PO SCH (22:44)
[2016-12-09] MEDS: PANTOPRAZOLE 40 MG TABLET PO SCH (06:43)
[2016-12-09 06:46] LABS: Appearance,Urine Clear (Clear); Bilirubin,Urine Negative (Negative); Glucose,Urine (UA) Negative (Negative); Ketones,Urine Negative (Negative); Leukocyte Esterase,Urine Negative (Negative); Nitrite,Urine Negative (Negative); PH, Urine 6.5 (5.0-8.0); Protein,Urine Negative (Negative); Specific Gravity,Urine 1.008 (1.001-1.035); UA Billing (MACRO vs. MICRO) CHEM; Urobilinogen,Urine <2.0 mg/dL (<2.0)
[2016-12-09 06:56] LABS: Basophils % (A) 1 %; CH 29.2; CHCM 31.4; Eosinophils # (A) 0.1 k/uL (0-0.7); Eosinophils % (A) 2 %; HCT 34.8 % (34.0-46.0); HGB 10.9 gm/dL (11.4-16.0); Hypochromasia Slight; Luc # (Auto) 0.12; Luc % (Auto) 4; Lymphocytes # (A) 0.7 k/uL (1.0-4.8); Lymphocytes % (A) 25 %; MCH 29.3 pg (25.0-35.0); MCHC 31.4 g/dL (31.0-37.0); MCV 93.4 fL (80.0-100.0); Monocytes # (A) 0.3 k/uL (0-1.0); Monocytes % (A) 11 %; Neutrophils # (A) 1.6 k/uL (1.3-7.7); Neutrophils % (A) 58 %; RBC 3.72 m/uL (3.80-5.40); RDW 13.7 % (11.5-15.5); WBC 2.8 k/uL (3.8-10.6); WBC (Perox) 2.91
[2016-12-09 07:13] LABS: Anion Gap 6 mmol/L; Blood Urea Nitrogen 21 mg/dL (7-17); Calcium 9.2 mg/dL (8.4-10.2); Carbon Dioxide 26 mmol/L (22-30); Chloride 109 mmol/L (98-107); Cholesterol 299 mg/dL (<200); Glucose 101 mg/dL (74-99); HDL Cholesterol 55 mg/dL (40-60); Non-African American GFR(MDRD) 52 (>60 ml/min/1.73 sqM); Potassium 4.8 mmol/L (3.5-5.1); Sodium 141 mmol/L (137-145); Triglycerides 195 mg/dL (<150)
[2016-12-09] MEDS: CLOPIDOGREL 75 MG TAB PO SCH (08:24)
[2016-12-09] MEDS: ENOXAPARIN 40 MG/0.4 ML SYRINGE SQ SCH (08:24)
[2016-12-09] MEDS: NITROFURANTOIN MONOHYD/M-CRYST 100 MG CAP PO SCH (08:24)
[2016-12-09] MEDS: amLODIPine 5 MG TAB PO SCH (09:20)
--- NOTE | 2016-12-09 09:56 | HP ---
DATE OF ADMISSION: DATE OF SERVICE: 12/08/2016 CHIEF COMPLAINT: Weakness of the left upper limb. HISTORY OF PRESENT ILLNESS: This 89-year-old woman with a past history of GERD, hypertension hyperlipidemia, history of myocardial infarction, history of CVA, TIA, hysterectomy, history of anxiety, being followed by Dr. Boo in the outpatient setting, was admitted with weakness of the left arm. The weakness started before lunch and the patient approximately and the patient unable to lift arm or use anything. The patient also had some minimal facial deviation on the left side. The patient came to [facility] and admitted for further evaluation and treatment. There is no history of any fever, rigors. No history of headache, loss of consciousness or seizures. The patient did have weakness of the left side earlier this year and during that time, old left temporal infarct was noted. There is no history of any fever, rigors, chills, no history of headache, loss of consciousness or seizures. PAST MEDICAL HISTORY: History of GERD, hypertension, hyperlipidemia, history of myocardial infarction, degenerative joint disease, history of urinary tract infection, history of cardiac catheterization. Medications prior to admission include: 1. Remeron 50 mg at bedtime. 2. Norvasc 5 mg daily. 3. Vitamin B1, 100 mg p.o. daily. 4. Prilosec 20 a.c. breakfast. 5. Nitrostat 0.5 sublingual p.r.n. 6. Macrobid 100 mg p.o. daily. 7. Melatonin 3 mg q.h.s. 8. Antivert 12.5 mg p.o. t.i.d. p.r.n. 9. Zestril 10 mg p.o. q.h.s. 10. Folic acid 1 mg daily. 11. Plavix 75 mg p.o. daily. 12. Ecotrin 81 mg daily. 13. Xanax 0.5 daily p.r.n. ALLERGIES: PENICILLIN. FAMILY HISTORY: History of bleeding ulcers in the family. SOCIAL HISTORY: No history of smoking, no history of alcohol intake. REVIEW OF SYSTEMS: ENT: Diminished hearing. Diminished vision. CARDIOVASCULAR: No angina. RESPIRATORY: No cough. GI: As mentioned earlier. : No dysuria. NERVOUS SYSTEM: Mentioned earlier. ALLERGY/IMMUNOLOGY: No asthma or hayfever. MUSCULOSKELETAL: As mentioned earlier. HEMATOLOGY: No history of anemia. ENDOCRINE: No history of diabetes or hypothyroidism. CONSTITUTIONAL: As mentioned earlier. DERMATOLOGY: Negative. RHEUMATOLOGY: Negative. PSYCHIATRY: As mentioned earlier. PHYSICAL EXAMINATION: The patient is alert and oriented times three. Pulse 105, blood pressure 130/87, respirations 16, temperature 97.4, pulse ox 99% on 2-L. HEENT: Conjunctivae normal. NECK: No jugular venous distention. CARDIOVASCULAR: S1 and S2, muffled. RESPIRATORY: Breath sounds diminished at the bases. No rhonchi, no crackles. ABDOMEN: Soft, nontender. No mass palpable. LEGS: No edema, no swelling. NERVOUS SYSTEM: Higher function as mentioned. Cranial nerves, minimal facial flattening of facial droop on the left side indicating left upper motor neuron facial palsy. Significant weakness of left side. Power is grade 3 and also some present on the left side. SKIN: No ulcer, rash or bleeding. LYMPHATIC: No lymphadenopathy in the neck, axillae or groin. LABS: CBC within normal limits. Creatinine is 1.05. The brain CAT scan shows cerebellar atrophic chronic small ischemia, no abnormalities. ASSESSMENT: 1. Acute cerebrovascular accident involving the left face and left upper limb possibly caused by right hemispheric acute stroke and cerebrovascular incident. 2. Increased creatinine with chronic kidney disease, stage III. 3. History of hypertension, essential. 4. Hyperlipidemia. 5. History of gastroesophageal reflux disease. 6. History of myocardial infarction. 7. History of degenerative joint disease. 8. History of urinary tract infection. 9. History of cardiac catheterization. 10. History of anxiety, not otherwise specified. 11. Previous history of weakness on the left side. 12. 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 13. History of dementia. 14. History of vitamin B12 deficiency. 15. History of dyslipidemia. 16. Hypercholesterolemia. 17. Gait dysfunction. 18. FULL CODE. RECOMMENDATIONS AND DISCUSSION: In this 89-year-old woman who presented with multiple medical issues at this time, we will monitor the patient closely. The patient has features of acute stroke. I would recommend antiplatelet agents and neurology consultation and neurovascular work-up and the patient is considered not a candidate for TPA at this time, but however, the overall prognosis is guarded because of multiple complex medical issues. Further recommendations to follow. See orders for further details. PT, OT evaluation and continue to monitor. Prognosis guarded. Further recommendations to follow. MTDD
[2016-12-09] MEDS: MULTIVITAMINS, THERA 1 EACH TAB PO SCH (12:03)
[2016-12-09] MEDS: FOLIC ACID 1 MG TAB PO SCH (12:03)
[2016-12-09] MEDS: THIAMINE 100 MG TAB PO SCH (12:03)
--- NOTE | 2016-12-09 14:22 | P.CNNES ---
History of Present Illness Consult date: 12/09/16 Reason for Consult: Patient with acute left sided weakness. History of Present Illness: This patient is a 89-year-old right-handed white female who states that about 2 days ago she noticed difficulty with the use of her left arm. She states she was unable to hold any objects in her hand due to weakness. She was unable to lift her arm or hold any heavy object in hand fish smoker. She also had some slight left-sided facial asymmetry. She does have history of previous stroke and for this reason decided to come to the emergency room. She was seen in the ER at [facility] yesterday and was evaluated in the ER by Dr. Melvin. She was sent for computed tomography scan of the brain which revealed cerebral atrophy and chronic small vessel ischemia. No evidence of any acute stroke or hemorrhage. No change compared to her previous CAT scan done on 09/20/2016. The patient substrate admitted to the hospital. She states she does take Plavix and one baby aspirin for secondary stroke prevention. She is not a very good historian and states she is not sure of her other medications. She is not aware of having any significant stroke symptoms in the past however apparently earlier this year she did have similar TIA like symptoms. As noted the patient is currently on Plavix and aspirin. This is likely for secondary stroke prevention. She states that her left arm strength has improved today since admission. She does complain of initial symptoms of weakness in the left wrist joint. She states that has also improved. When questioned whether she had any slurred speech and left facial droop she is is unable to provide details. Apparently the initial episode of left hand and arm weakness lasted over [address] Melvin deemed her not to be a TPA candidate due to the extent of her symptoms and not in the window for TPA. Her stroke risk factors do include history of hypertension and previous TIA. We have recommended a complete stroke evaluation for this patient. Overall prognosis at this time remains guarded. Neurology is now been consulted for further evaluation and recommendations. Review of Systems Constitutional: Denies chills, Denies fever Eyes: denies blurred vision, denies pain Ears, nose, mouth and throat: Denies headache, Denies sore throat Cardiovascular: Denies chest pain, Denies shortness of breath Respiratory: Denies cough Gastrointestinal: Denies abdominal pain, Denies diarrhea, Denies nausea, Denies vomiting Genitourinary: Denies dysuria, Denies hematuria Musculoskeletal: Denies myalgias Integumentary: Denies pruritus, Denies rash Neurological: Reports confusion, Reports motor disturbance, Reports paresthesias , Denies numbness, Denies weakness Psychiatric: Denies anxiety, Denies depression Endocrine: Denies fatigue, Denies weight change Past Medical History Past Medical History: GERD/Reflux, Hyperlipidemia, Hypertension, Myocardial Infarction (VT), Osteoarthritis (OA) Additional Past Medical History / Comment(s): UTI Last Myocardial Infarction Date:: UNK History of Any Multi-Drug Resistant Organisms: None Reported Past Surgical History: Heart Catheterization, Hysterectomy Additional Past Surgical History / Comment(s): cataracts Past Anesthesia/Blood Transfusion Reactions: Motion Sickness Past Psychological History: Anxiety Additional Psychological History / Comment(s): PAXIL Smoking Status: Never smoker Past Alcohol Use History: None Reported Past Drug Use History: None Reported - Past Family History Father Family Medical History: Unable to Obtain Additional Family Medical History / Comment(s): AT AGE 60 UNSURE OF HX, BLEEDING ULCERS Mother Family Medical History: CVA/TIA, Hyperlipidemia, Hypertension Additional Family Medical History / Comment(s): AT AGE 87 Medications and Allergies Home Medications Medication Instructions Recorded Confirmed Type Omeprazole [PriLOSEC] 20 mg PO AC-BRKFST 06/08/14 12/08/16 History Aspirin EC [Ecotrin Low Dose] 81 mg PO DAILY 09/21/16 12/08/16 History Meclizine [Antivert] 12.5 mg PO TID PRN 09/21/16 12/08/16 History Nitrofurantoin Monohyd/M-Cryst 100 mg PO DAILY 09/21/16 12/08/16 History [Macrobid] Mirtazapine [Remeron] 15 mg PO HS 12/08/16 12/08/16 History amLODIPine [Norvasc] 5 mg PO DAILY 12/08/16 12/08/16 History Allergies Allergy/AdvReac Type Severity Reaction Status Date / Time Penicillins Allergy Rash/Hives Verified 12/08/16 17:06 Physical Examination - Vital Signs Vital Signs: Vital Signs Temp Pulse Pulse Pulse Resp BP BP 12/09/16 08:00 96.9 F L 104 H 16 130/65 04/07/17 06:15 95 16 135/70 04/07/17 04:15 97 F L 73 16 126/66 12/09/16 02:15 79 16 125/68 12/09/16 00:15 73 16 130/63 12/08/16 23:15 96.9 F L 99 16 130/74 12/08/16 22:15 96.9 F L 88 16 113/74 12/08/16 21:15 97.1 F L 105 H 16 131/87 12/08/16 20:52 86 16 156/77 12/08/16 19:32 88 16 161/86 Pulse Ox 12/09/16 08:00 99 12/09/16 06:15 99 12/09/16 04:15 100 12/09/16 02:15 97 12/09/16 00:15 100 12/08/16 23:15 99 12/08/16 22:15 100 12/08/16 21:15 99 12/08/16 20:52 12/08/16 19:32 97 Intake and Output 12/08/16 12/09/16 12/09/16 22:59 06:59 14:59 Intake Total 100 240 Output Total 275 500 Balance -175 -260 Intake: Oral 100 240 Output: Urine 275 500 Other: Voiding Method Toilet Toilet Toilet # Voids 1 Weight 75.5 kg 75.5 kg - Constitutional General appearance: average body habitus, cooperative - EENT EENT: PERRL, mucous membranes moist - Respiratory Respiratory: lungs clear, normal breath sounds - Cardiovascular Cardiovascular: regular rate, normal S1, normal S2 Extremities: no peripheral edema bilaterally - Gastrointestinal Gastrointestinal: normoactive bowel sounds - Integumentary Integumentary: normal - Neurologic Cranial nerve examination: PERRL, EOMI, VFF, V1/V2/V3 grossly intact, face symmetric, tongue midline, intact gag reflex, intact corneal reflex, normal palatal elevation Speech examination: intact Motor examination - right side: 5/5: biceps, triceps, wrist flexion, wrist extension, master motorcycle technician, hip flexors, knee extensors, dorsiflexion, toe extension (EHL) , plantarflexion Motor examination - left side: 4/5: biceps, triceps, wrist flexion, wrist extension, master motorcycle technician, 5/5: hip flexors, knee extensors, dorsiflexion, toe extension ( EHL), plantarflexion Detailed sensory examination: intact Reflex and gait examination: intact Reflexes: 1+: ankle, bicep, knee, tricep - Musculoskeletal Musculoskeletal: no pain - Psychiatric Psychiatric: mood/affect appropriate, cooperative Results - Laboratory Findings CBC and BMP: 12/09/16 06:22 12/09/16 06:22 Abnormal Lab Findings: Abnormal Labs 12/09/16 12/09/16 06:22 06:22 WBC 2.8 L RBC 3.72 L Hgb 10.9 L Lymphocytes # 0.7 L Chloride 109 H BUN 21 H Glucose 101 H Triglycerides 195 H Cholesterol 299 H LDL Cholesterol, Calc 205 H Assessment and Plan (1) TIA (transient ischemic attack) Status: Acute Code(s): G45.9 - TRANSIENT CEREBRAL ISCHEMIC ATTACK, UNSPECIFIED (2) Accelerated hypertension Status: Acute Code(s): I10 - ESSENTIAL (PRIMARY) HYPERTENSION (3) Hyperlipemia Status: Acute Code(s): E78.5 - HYPERLIPIDEMIA, UNSPECIFIED (4) S/P cardiac cath Status: Acute Code(s): Z98.89 - OTHER SPECIFIED POSTPROCEDURAL STATES * DO NOT USE * Plan: This patient is a 89-year-old right-handed white female who was admitted with episode of left arm weakness of 4 hours duration. Symptoms slowly improved and she was admitted to Hospital. Patient has history of previous TIA and stroke. She still has evidence of a mild left pronator drift. Initial computed tomography scan of the brain on admission failed to reveal any evidence of acute stroke or hemorrhage. We recommended a complete stroke evaluation for the patient. We will obtain an MRI of the brain for further evaluation of acute right hemispheric stroke. Overall prognosis for the patient remains guarded. She is to continue on dual platelet therapy for secondary stroke prevention. Overall prognosis at this time remains guarded. Time with Patient: Greater than 30
--- NOTE | 2016-12-09 18:02 | MR ---
EXAMINATION TYPE: MR brain wo con DATE OF EXAM: 12/09/2016 5:51 PM COMPARISON: 05/03/2016 HISTORY: Right hemispheric TIA vs. Stroke, Left arm weakness Standard multiplanar, multisequence MRI departmental protocol Multiplanar, multisequence images of the brain were acquired. Diffusion weighted imaging was performe d. FINDINGS: There is diffuse cerebral cortical atrophy. There is no mass effect nor midline shift. Ther e is moderate patchy increased signal on the T2 and FLAIR images in the periventricular white matter. The brainstem is intact. There is thinning of the corpus callosum. Sella turcica appears normal. The re is mild left side meningeal thickening. IMPRESSION: Moderately severe diffuse cerebral atrophy. Extensive white matter changes consistent with chronic sm all vessel ischemia or demyelinating disease. There are numerous foci that measure up to 2 cm around the lateral ventricles. There are also multiple discrete foci of cortical increased signal on the T2 and FLAIR images in both parietal lobes consistent with ischemia. There is mild left-sided hemispheric meningeal thickening which is unchanged. There is overall no sig nificant change compared to the last exam 05/03/2016.
[2016-12-09] MEDS ORDERED: ATORVASTATIN 40 MG TAB PO SCH (21:00)
[2016-12-09] MEDS: MELATONIN 3 MG TABLET PO SCH (21:11)
[2016-12-09] MEDS: MIRTAZAPINE 15 MG TAB PO SCH (21:12)
[2016-12-09] MEDS: ASPIRIN 325 MG TAB PO SCH (21:12)
[2016-12-09] MEDS: LISINOPRIL 10 MG TAB PO SCH (21:12)
--- NOTE | 2016-12-09 21:38 | PN ---
DATE OF SERVICE: 12/09/2016 This 89-year-old woman who was admitted to acute CVA involving the left face and left upper limb. Neurology is following the patient closely. She had an MRI done which showed moderately severe diffuse cerebral atrophy and extensive white matter changes, numerous foci measuring up to 2 cm around the lateral ventricles; multiple discrete foci of cortical signals in both parietal lobes consistent with ischemia. The patient is being closely monitored. No chest pain. No palpitation. No fever. Weakness seems to be improving. On exam, alert and oriented x3. Pulse 98, blood pressure 143/78, respiration 18, temperature 97.6, pulse ox 99% on room air. HEENT: Conjunctivae normal. NECK: No jugular venous distention. CARDIOVASCULAR SYSTEM: S1, S2 muffled. RESPIRATORY SYSTEM: Breath sounds diminished at the bases. No rhonchi. No crackles. ABDOMEN: Soft, nontender. LEGS: No edema. No swelling. NERVOUS SYSTEM: Higher functions as mentioned earlier. Minimal facial flattening on the left side and left-sided weakness. Some incoordination also present. Weakness is 4+. LABS: WBC 2.3. Hemoglobin is 10.9. ASSESSMENT: 1. Acute cerebrovascular accident involving the left face and left upper limb, possibly caused by right hemispheric lesion, stroke and cerebrovascular accident. 2. Diffuse cerebral artery atherosclerosis. 3. Increased creatinine with chronic kidney disease, stage III. 4. History of hypertension, essential. 5. Hyperlipidemia. 6. History of gastroesophageal reflux disease. 7. History of myocardial infarction. 8. History of degenerative joint disease. 9. History of urinary tract infection. 10. History of cardiac catheterization. 11. History of anxiety not otherwise specified. 12. Previous history of weakness on the left side. 13. History of dementia. 14. History of vitamin B12 deficiency. 15. History of dyslipidemia. 16. History of hypercholesterolemia. 17. Gait dysfunction. 18. Hyperlipidemia. 19. FULL CODE. RECOMMENDATIONS AND DISCUSSION: I recommend to continue current medications, continue with the monitoring, symptomatic treatment. Otherwise, will check the vitamin B12 levels and continue to monitor. Closely follow with Neurology. Antiplatelet agents. Lipitor. Guarded prognosis because of multiple complex medical issues. Further recommendations to follow.
[2016-12-10] MEDS: PANTOPRAZOLE 40 MG TABLET PO SCH (06:53)
[2016-12-10 06:54] LABS: Basophils % (A) 0 %; CH 28.9; Eosinophils # (A) 0.1 k/uL (0-0.7); Eosinophils % (A) 2 %; HCT 35.7 % (34.0-46.0); HDW 2.85; HGB 11.3 gm/dL (11.4-16.0); Hypochromasia Slight; Luc # (Auto) 0.16; Luc % (Auto) 4; Lymphocytes # (A) 0.9 k/uL (1.0-4.8); Lymphocytes % (A) 24 %; MCH 28.9 pg (25.0-35.0); MCHC 31.7 g/dL (31.0-37.0); MCV 90.9 fL (80.0-100.0); Monocytes # (A) 0.4 k/uL (0-1.0); Monocytes % (A) 11 %; Neutrophils # (A) 2.3 k/uL (1.3-7.7); Neutrophils % (A) 58 %; RBC 3.93 m/uL (3.80-5.40); RDW 13.8 % (11.5-15.5); WBC 3.9 k/uL (3.8-10.6); WBC (Perox) 3.95
[2016-12-10 07:12] LABS: Anion Gap 11 mmol/L; Blood Urea Nitrogen 20 mg/dL (7-17); Calcium 9.4 mg/dL (8.4-10.2); Carbon Dioxide 24 mmol/L (22-30); Chloride 106 mmol/L (98-107); Glucose 102 mg/dL (74-99); Non-African American GFR(MDRD) 50 (>60 ml/min/1.73 sqM); Sodium 141 mmol/L (137-145)
[2016-12-10 08:45] VITALS: BP 125/61; PULSE 89; RESP 18; TEMP 96.4
[2016-12-10] MEDS: CLOPIDOGREL 75 MG TAB PO SCH (08:46)
[2016-12-10] MEDS: NITROFURANTOIN MONOHYD/M-CRYST 100 MG CAP PO SCH (08:46)
[2016-12-10] MEDS: amLODIPine 5 MG TAB PO SCH (08:46)
[2016-12-10] MEDS: ASPIRIN 325 MG TAB PO SCH (08:46)
[2016-12-10] MEDS: ENOXAPARIN 40 MG/0.4 ML SYRINGE SQ SCH (08:46)
[2016-12-10] MEDS: MULTIVITAMINS, THERA 1 EACH TAB PO SCH (14:17)
[2016-12-10] MEDS: FOLIC ACID 1 MG TAB PO SCH (14:17)
[2016-12-10] MEDS: THIAMINE 100 MG TAB PO SCH (14:18)
--- NOTE | 2016-12-11 15:35 | DS ---
DATE OF ADMISSION: 12/08/2016 DATE OF DISCHARGE: 12/10/2016 FINAL DIAGNOSES: 1. Acute cerebrovascular accident involving the left face and left upper limb, possibly caused by right hemispheric lesion, stroke and acute cerebrovascular accident. 2. Diffuse cerebral arteriosclerosis. 3. Increased creatinine with chronic kidney disease, stage III. 4. History of hypertension, essential. 5. Hyperlipidemia. 6. History of gastroesophageal reflux disease. 7. History of myocardial infarction. 8. History of degenerative joint disease. 9. History of urinary tract infection. 10. History of cardiac catheterization. 11. History of anxiety, not otherwise specified. 12. Previous history of weakness on the left side. 13. History of dementia. 14. History of vitamin B12 deficiency. 15. History of dyslipidemia. 16. History of hypercholesterolemia. 17. History of gait dysfunction. 18. History of hyperlipidemia. 19. FULL CODE. DISCHARGE DISPOSITION: The patient will be discharged in stable condition with guarded prognosis. HISTORY OF PRESENT ILLNESS: This 89-year-old woman with past medical history of multiple medical problems admitted with weakness of the left side of the body, indicated by right-sided hemispheric lesions. The patient had a CT scan showed that showed diffuse ischemic changes. MRI also confirmed the same. Otherwise, neurology saw the patient and patient improved significantly. On exam, vitals are stable. CARDIOVASCULAR: S1, S2 muffled. ABDOMEN: Soft. NERVOUS SYSTEM: No focal deficits. Cholesterol is 290, LDL is 205, vitamin B12 was 317. ( ) lower limits of normal. DISCHARGE ADVICE AND MEDICATIONS: 1. Diet is cardiac. 2. Activity limited until follow-up. 3. Follow up with Dr. Boo in 1 to 2 days. 4. Follow with Dr. Taylor as advised. 5. Home care has been recommended. MEDICATIONS: 1. Xanax 0.25 daily. 2. Ecotrin 81 mg p.o. daily. 3. Lipitor 40 mg q.h.s. 4. Plavix 75 mg p.o. daily. 5. Folic acid 1 mg p.o. daily. 6. Zestril 10 mg p.o. q.h.s. 7. Antivert 12.5 mg t.i.d. 8. Melatonin 3 mg p.o. q.h.s. 9. Remeron 15 p.o. q.h.s. 10. Multivitamin 1 p.o. daily. 11. Nitrofurantoin 100 mg p.o. daily. 12. Nitrostat 0.4 sublingual p.r.n. 13. Prilosec 20 mg a.c. daily. 14. Thiamine 100 mg p.o. daily. 15. Norvasc 5 mg p.o. daily. Once again, the patient will be discharged in a stable condition with guarded prognosis.
== END 2016-12-10 14:20 | disposition home health service (06) | DRG 65 ==
LOC: EC 16:35 → 6SEL 19:07 → 3SUR 12-10 11:22
PROVIDERS: ADMIT Hospitalist; ATTEND Hospitalist
DX: I63.9 Cerebral infarction, unspecified (principal); G81.94 Hemiplegia, unspecified affecting left nondominant side; F03.90 Unspecified dementia, unspecified severity, without behavioral disturbance, psychotic disturbance, mood disturbance, and anxiety; I67.2 Cerebral atherosclerosis; I25.2 Old myocardial infarction; E78.00 Pure hypercholesterolemia, unspecified; E78.5 Hyperlipidemia, unspecified; I12.9 Hypertensive chronic kidney disease with stage 1 through stage 4 chronic kidney disease, or unspecified chronic kidney disease; K21.9 Gastro-esophageal reflux disease without esophagitis; N18.3 Chronic kidney disease, stage 3 (moderate); F41.9 Anxiety disorder, unspecified; M19.90 Unspecified osteoarthritis, unspecified site; E53.8 Deficiency of other specified B group vitamins; R26.9 Unspecified abnormalities of gait and mobility; H91.90 Unspecified hearing loss, unspecified ear; H54.7 Unspecified visual loss; Z79.82 Long term (current) use of aspirin; Z79.02 Long term (current) use of antithrombotics/antiplatelets; Z79.899 Other long term (current) drug therapy; Z86.73 Personal history of transient ischemic attack (TIA), and cerebral infarction without residual deficits; Z88.0 Allergy status to penicillin; Z82.49 Family history of ischemic heart disease and other diseases of the circulatory system
CPT/HCPCS: 36415; 70450; 70551; 71020; 80048; 80053; 80061; 81003; 82550; 82553; 82607; 84484; 85025; 85610; 85730; 93005; 96361; 96374; 99285

== ENCOUNTER 2017-02-01 11:40 | Inpatient (IN) | payer MEDICARE, BC ==
[2017-02-01] MEDS ORDERED: SODIUM CHLORIDE 0.9% 500 ML IV STA (12:31)
--- NOTE | 2017-02-01 12:34 | ED ---
General Adult HPI - General Chief complaint: Altered Mental Status Stated complaint: STROKE LIKE SYMPTOMS Time Seen by Provider: 02/01/17 12:05 Source: patient, family, RN notes reviewed Mode of arrival: wheelchair Limitations: no limitations - History of Present Illness Initial comments: This is an 89-year-old female presents to the emergency department complaining of being off balance. Patient states she's been significantly off balance since yesterday every time she gets up she feels like she is given a fall over. Patient states when she is lying in bed she has no symptoms. Daughter states that the patient is having some expressive aphasia occasionally. Daughter states she tries to say something another words come out that don't make any sense at all and then other times the patient is able to speak normally. Patient does not recognize herself doing this. Patient denies any headache she denies any numbness or weakness. Patient denies any chest pain palpitations difficult to breathing or shortness of breath. Patient denies any recent fever chills or cough. Patient denies any abdominal pain patient denies nausea vomiting diarrhea. Patient has history of TIAs. - Related Data Home Medications Medication Instructions Recorded Confirmed Omeprazole [PriLOSEC] 20 mg PO AC-BRKFST 06/08/14 02/01/17 Aspirin EC [Ecotrin Low Dose] 81 mg PO DAILY 09/21/16 02/01/17 Meclizine [Antivert] 12.5 mg PO TID PRN 09/21/16 02/01/17 Nitrofurantoin Monohyd/M-Cryst 100 mg PO DAILY 09/21/16 02/01/17 [Macrobid] Mirtazapine [Remeron] 15 mg PO HS 12/08/16 02/01/17 amLODIPine [Norvasc] 5 mg PO DAILY 12/08/16 02/01/17 ALPRAZolam [Xanax] 0.25 mg PO HS PRN 02/01/17 02/01/17 Multivitamins, Thera [Multivitamin 1 tab PO DAILY 02/01/17 02/01/17 (formulary)] Sulfamethox-Tmp 800-160Mg [Bactrim 1 tab PO Q12HR 02/01/17 02/01/17 DS 800-160 mg] Thiamine [Vitamin B-1] 100 mg PO DAILY 02/01/17 02/01/17 Previous Rx's Medication Instructions Recorded Nitroglycerin Sl Tabs [Nitrostat] 0.4 mg SUBLINGUAL Q5M PRN #25 tab 06/10/14 Lisinopril [Zestril] 10 mg PO HS tab 09/23/16 Atorvastatin [Lipitor] 40 mg PO HS #30 tab 12/10/16 Clopidogrel [Plavix] 75 mg PO DAILY #30 tab 12/10/16 Allergies Allergy/AdvReac Type Severity Reaction Status Date / Time Penicillins Allergy Rash/Hives Verified 02/01/17 12:46 Review of Systems ROS Statement: Those systems with pertinent positive or pertinent negative responses have been documented in the HPI. ROS Other: All systems not noted in ROS Statement are negative. Past Medical History Past Medical History: CVA/TIA, GERD/Reflux, Hyperlipidemia, Hypertension, Myocardial Infarction (GA), Osteoarthritis (OA) Additional Past Medical History / Comment(s): UTI Last Myocardial Infarction Date:: UNK History of Any Multi-Drug Resistant Organisms: None Reported Past Surgical History: Heart Catheterization, Hysterectomy Additional Past Surgical History / Comment(s): cataracts Past Anesthesia/Blood Transfusion Reactions: Motion Sickness Past Psychological History: Anxiety Additional Psychological History / Comment(s): PAXIL Smoking Status: Never smoker Past Alcohol Use History: None Reported Past Drug Use History: None Reported - Past Family History Father Family Medical History: Unable to Obtain Additional Family Medical History / Comment(s): AT AGE 60 UNSURE OF HX, BLEEDING ULCERS Mother Family Medical History: CVA/TIA, Hyperlipidemia, Hypertension Additional Family Medical History / Comment(s): AT AGE 87 General Exam - General Exam Comments Initial Comments: GENERAL: Patient is well-developed and well-nourished. Patient is nontoxic and well- hydrated and is in no acute distress. ENT: Neck is soft and supple. No significant lymphadenopathy is noted. Oropharynx is clear. Moist mucous membranes. Neck has full range of motion without eliciting any pain. EYES: The sclera were anicteric and conjunctiva were pink and moist. Extraocular movements were intact and pupils were equal round and reactive to light. Eyelids were unremarkable. PULMONARY: Unlabored respirations. Good breath sounds bilaterally. No audible rales rhonchi or wheezing was noted. CARDIOVASCULAR: There is a regular rate and rhythm without any murmurs gallops or rubs. ABDOMEN: Soft and nontender with normal bowel sounds. No palpable organomegaly was noted. There is no palpable pulsatile mass. SKIN: Skin is clear with no lesions or rashes and otherwise unremarkable. NEUROLOGIC: Patient is alert and oriented x3. Cranial nerves II through XII are grossly intact. Motor and sensory are also intact. Normal speech, volume and content. Symmetrical smile. Cerebellar exam grossly intact. MUSCULOSKELETAL: Normal extremities with adequate strength and full range of motion. No lower extremity swelling or edema. No calf tenderness. LYMPHATICS: No significant lymphadenopathy is noted PSYCHIATRIC: Normal psychiatric evaluation. Normal interpersonal interactions appears functionally intact in deals appropriately with others. No signs of depression. No signs of anxiety. Limitations: no limitations Course Vital Signs 02/01/17 02/01/17 02/01/17 12:06 12:47 13:31 Temperature 98.2 F Pulse Rate 105 H 103 H Pulse Rate [ 102 H [employer] ] Respiratory 20 18 18 Rate Blood Pressure 84/48 105/63 Blood Pressure 88/51 [Sitting] Blood Pressure 84/50 [Standing] Blood Pressure 107/55 [Supine] O2 Sat by Pulse 98 99 Oximetry 02/01/17 02/01/17 14:04 15:04 Temperature 97 F L 97.4 F L Pulse Rate 90 86 Pulse Rate [ [employer] ] Respiratory 18 18 Rate Blood Pressure 138/90 131/70 Blood Pressure [Sitting] Blood Pressure [Standing] Blood Pressure [Supine] O2 Sat by Pulse 96 97 Oximetry Medical Decision Making - Medical Decision Making EKG shows normal sinus rhythm at [address] interval 140 QRS is 84 QT interval 332 QTC is 428 per patient's EKG shows no ST segment elevation or depression or T-wave abdomen is noted. Chest x-ray shows no acute abnormality. CT of the head shows no acute abnormality. Patient's speech problems have resolved while in the emergency department. I spoke with Dr. Lewis he agreed to admit the patient admitted the patient I consult the neurology - Lab Data Result diagrams: 02/01/17 12:30 02/01/17 12:30 Lab Results 02/01/17 02/01/17 02/01/17 Range/Units 12:30 12:30 12:30 WBC 5.3 (3.8-10.6) k/uL RBC 4.04 (3.80-5.40) m/uL Hgb 11.7 (11.4-16.0) gm/dL Hct 35.1 (34.0-46.0) % MCV 86.9 (80.0-100.0) fL MCH 29.0 (25.0-35.0) pg MCHC 33.3 (31.0-37.0) g/dL RDW 14.6 (11.5-15.5) % Plt Count 228 (150-450) k/uL Neutrophils % 74 % Lymphocytes % 15 % Monocytes % 8 % Eosinophils % 0 % Basophils % 0 % Neutrophils # 4.0 (1.3-7.7) k/uL Lymphocytes # 0.8 L (1.0-4.8) k/uL Monocytes # 0.4 (0-1.0) k/uL Eosinophils # 0.0 (0-0.7) k/uL Basophils # 0.0 (0-0.2) k/uL PT (9.0-12.0) sec INR (<1.1) APTT (22.0-30.0) sec Sodium 132 L (137-145) mmol/L Potassium 5.6 H (3.5-5.1) mmol/L Chloride 101 (98-107) mmol/L Carbon Dioxide 21 L (22-30) mmol/L Anion Gap 10 mmol/L BUN 35 H (7-17) mg/dL Creatinine 2.38 H (0.52-1.04) mg/dL Est GFR (MDRD) Af Amer 23 (>60 ml/min/1.73 sqM) Est GFR (MDRD) Non-Af 19 (>60 ml/min/1.73 sqM) Glucose 98 (74-99) mg/dL Plasma Lactic Acid Richie (0.7-2.0) mmol/L Calcium 9.8 (8.4-10.2) mg/dL Total Bilirubin 0.6 (0.2-1.3) mg/dL AST 32 (14-36) U/L ALT 22 (9-52) U/L Alkaline Phosphatase 102 (38-126) U/L Total Creatine Kinase 183 H (30-135) U/L CK-MB (CK-2) 7.6 H* (0.0-2.4) ng/mL CK-MB (CK-2) Rel Index 4.2 Troponin I 0.064 H* (0.000-0.034) ng/mL Total Protein 6.7 (6.3-8.2) g/dL Albumin 4.1 (3.5-5.0) g/dL Urine Color Urine Appearance (Clear) Urine pH (5.0-8.0) Ur Specific Bayard (1.001-1.035) Urine Protein (Negative) Urine Glucose (UA) (Negative) Urine Ketones (Negative) Urine Blood (Negative) Urine Nitrite (Negative) Urine Bilirubin (Negative) Urine Urobilinogen (<2.0) mg/dL Ur Leukocyte Esterase (Negative) Urine RBC (0-5) /hpf Urine WBC (0-5) /hpf Ur Squamous Epith Cells (0-4) /hpf Hyaline Casts (0-2) /lpf Urine Mucus (None) /hpf 02/01/17 02/01/17 02/01/17 Range/Units 12:30 12:49 13:36 WBC (3.8-10.6) k/uL RBC (3.80-5.40) m/uL Hgb (11.4-16.0) gm/dL Hct (34.0-46.0) % MCV (80.0-100.0) fL MCH (25.0-35.0) pg MCHC (31.0-37.0) g/dL RDW (11.5-15.5) % Plt Count (150-450) k/uL Neutrophils % % Lymphocytes % % Monocytes % % Eosinophils % % Basophils % % Neutrophils # (1.3-7.7) k/uL Lymphocytes # (1.0-4.8) k/uL Monocytes # (0-1.0) k/uL Eosinophils # (0-0.7) k/uL Basophils # (0-0.2) k/uL PT 9.6 (9.0-12.0) sec INR 0.9 (<1.1) APTT 22.4 (22.0-30.0) sec Sodium (137-145) mmol/L Potassium (3.5-5.1) mmol/L Chloride (98-107) mmol/L Carbon Dioxide (22-30) mmol/L Anion Gap mmol/L BUN (7-17) mg/dL Creatinine (0.52-1.04) mg/dL Est GFR (MDRD) Af Amer (>60 ml/min/1.73 sqM) Est GFR (MDRD) Non-Af (>60 ml/min/1.73 sqM) Glucose (74-99) mg/dL Plasma Lactic Acid Richie 1.7 (0.7-2.0) mmol/L Calcium (8.4-10.2) mg/dL Total Bilirubin (0.2-1.3) mg/dL AST (14-36) U/L ALT (9-52) U/L Alkaline Phosphatase (38-126) U/L Total Creatine Kinase (30-135) U/L CK-MB (CK-2) (0.0-2.4) ng/mL CK-MB (CK-2) Rel Index Troponin I (0.000-0.034) ng/mL Total Protein (6.3-8.2) g/dL Albumin (3.5-5.0) g/dL Urine Color Yellow Urine Appearance Clear (Clear) Urine pH 6.0 (5.0-8.0) Ur Specific Bayard 1.011 (1.001-1.035) Urine Protein Negative (Negative) Urine Glucose (UA) Negative (Negative) Urine Ketones Negative (Negative) Urine Blood Trace H (Negative) Urine Nitrite Negative (Negative) Urine Bilirubin Negative (Negative) Urine Urobilinogen <2.0 (<2.0) mg/dL Ur Leukocyte Esterase Negative (Negative) Urine RBC 6 H (0-5) /hpf Urine WBC 6 H (0-5) /hpf Ur Squamous Epith Cells <1 (0-4) /hpf Hyaline Casts 15 H (0-2) /lpf Urine Mucus Rare H (None) /hpf Disposition Clinical Impression: Transient cerebral ischemia Disposition: ADMITTED IP TO THIS HOSP Referrals: Chelsie Franco DO [Primary Care Provider] - 1-2 days
[2017-02-01 13:01] LABS: Basophils % (A) 0 %; CH 29.2; CHCM 33.8; Eosinophils % (A) 0 %; HCT 35.1 % (34.0-46.0); HDW 2.65; HGB 11.7 gm/dL (11.4-16.0); Luc # (Auto) 0.15; Luc % (Auto) 3; Lymphocytes # (A) 0.8 k/uL (1.0-4.8); Lymphocytes % (A) 15 %; MCHC 33.3 g/dL (31.0-37.0); MCV 86.9 fL (80.0-100.0); Mean Platelet Volume 7.3; Monocytes # (A) 0.4 k/uL (0-1.0); Monocytes % (A) 8 %; Neutrophils % (A) 74 %; RBC 4.04 m/uL (3.80-5.40); RDW 14.6 % (11.5-15.5); WBC 5.3 k/uL (3.8-10.6); WBC (Perox) 5.53
[2017-02-01 13:09] LABS: Calcium 9.8 mg/dL (8.4-10.2); Potassium 5.6 mmol/L (3.5-5.1); Total Bilirubin 0.6 mg/dL (0.2-1.3); Total Protein 6.7 g/dL (6.3-8.2)
--- NOTE | 2017-02-01 13:20 | XR ---
EXAMINATION TYPE: XR chest 2V DATE OF EXAM: 02/01/2017 COMPARISON: Chest x-ray December 08, 2016. HISTORY: Altered mental status and weakness. TECHNIQUE: Frontal and lateral views of the chest are obtained. FINDINGS: Underlying emphysematous changes felt present. There is no focal air space opacity, pleural effusion, or pneumothorax seen. The cardiac silhouette size is enlarged with atherosclerotic thorac ic aorta. Mass effect on trachea deviated to right of midline is redemonstrated. The osseous structu res are demineralized. Exaggerated thoracic kyphosis is redemonstrated. IMPRESSION: Chronic changes and cardiomegaly without acute pulmonary process. No significant change from prior.
--- NOTE | 2017-02-01 13:25 | CT ---
EXAMINATION TYPE: CT brain wo con DATE OF EXAM: 02/01/2017 HISTORY: Patient complains of dizziness. Neurodeficits per order. CT DLP: 1082 mGycm. Automated Exposure Control for Dose Reduction was Utilized. TECHNIQUE: CT scan of the head is performed without contrast. COMPARISON: CT brain December 08, 2016. MRI brain December 09, 2016. FINDINGS: There is no acute intracranial hemorrhage or midline shift identified. There is diffuse v entricular and sulcal prominence consistent with diffuse age-related cerebral atrophy. There is low- attenuation in the periventricular white matter consistent with chronic small vessel ischemic change. There is persistent area of asymmetric increased CSF prominence left middle cranial fossa could refl ect arachnoid cyst or asymmetric increased atrophy left temporal lobe. There is persistent increased area of CSF posterior fossa anteriorly suspicious for arachnoid cyst. Old infarct left occipital lobe is redemonstrated. Vascular calcification of distal internal carotid arteries is redemonstrated bila terally. The globes are intact and the visualized sinuses are clear. IMPRESSION: No acute intracranial hemorrhage or midline shift. There is fairly moderate diffuse age -related cerebral atrophy and chronic small vessel ischemic change as well as old left occipital infa rct all redemonstrated. No significant change from prior studies is identified.
[2017-02-01 13:28] LABS: INR 0.9 (<1.1); Partial Thromboplastin Time 22.4 sec (22.0-30.0); Prothrombin Time 9.6 sec (9.0-12.0)
[2017-02-01 13:41] LABS: Creatine Kinase MB 7.6 ng/mL (0.0-2.4); Troponin I 0.064 ng/mL (0.000-0.034)
[2017-02-01] MEDS ORDERED: SODIUM CHLORIDE 0.9% 1,000 ML IV ONE (14:19)
[2017-02-01 14:37] LABS: Appearance,Urine Clear (Clear); Bilirubin,Urine Negative (Negative); Glucose,Urine (UA) Negative (Negative); Ketones,Urine Negative (Negative); Leukocyte Esterase,Urine Negative (Negative); Mucus,Urine Rare /hpf; Nitrite,Urine Negative (Negative); Particle Count 14622; Protein,Urine Negative (Negative); RBC,Urine 6 /hpf (0-5); Specific Gravity,Urine 1.011 (1.001-1.035); Squamous Epithelial Cell,Urine <1 /hpf (0-4); UA Billing (MACRO vs. MICRO) MICRO; Urobilinogen,Urine <2.0 mg/dL (<2.0); WBC,Urine 6 /hpf (0-5)
[2017-02-01] MEDS ORDERED: NITROGLYCERIN SL TABS 0.4 MG TAB SUBLINGUAL PRN (17:20)
[2017-02-01] MEDS: SODIUM CHLORIDE 0.9% 1,000 ML IV SCH (17:44)
[2017-02-01] MEDS ORDERED: INSULIN REGULAR 100 UNIT/ML VIAL IV ONE (18:19)
[2017-02-01] MEDS ORDERED: DEXTROSE 50%-WATER 50 ML SYRINGE IVP STA (18:19)
[2017-02-01] MEDS: ASPIRIN 81 MG CHEW PO SCH (18:28)
--- NOTE | 2017-02-01 18:46 | US ---
EXAMINATION TYPE: US carotid duplex BILAT DATE OF EXAM: 02/01/2017 COMPARISON: US 2017 CLINICAL HISTORY: Stenosis. Patient c/o loss of balance. EXAM MEASUREMENTS: RIGHT: Peak Systolic Velocity (PSV) cm/sec ----- Right CCA: 50.1 ----- Right ICA: 59.2 ----- Right ECA: 71.3 ICA/CCA ratio: 1.2 RIGHT: End Diastole cm/sec ----- Right CCA: 14.4 ----- Right ICA: 20.0 ----- Right ECA: 0.0 LEFT: Peak Systolic Velocity (PSV) cm/sec ----- Left CCA: 58.1 ----- Left ICA: 85.8 ----- Left ECA: 70.0 ICA/CCA ratio: 1.5 LEFT: End Diastole cm/sec ----- Left CCA: 14.4 ----- Left ICA: 26.3 ----- Left ECA: 13.1 VERTEBRALS (direction of flow): Right Vertebral: Antegrade Left Vertebral: Antegrade Incidental findings of bilateral thyroid nodules are noted. IMPRESSION: Moderate, irregular and calcified wall plaques is noted at bilateral carotid bifurcation , but PSV is wnl bilaterally. Cardiac arrhythmia is noted and documented at left vertebral artery ass essment. Criteria for Assigning % of Stenosis / Diameter reduction (Estimation based on the indirect measurements of the internal carotid artery velocities (ICA PSV). 1. Normal (no stenosis)=ICA PSV < 125 cm/s: ratio < 2.0: ICA EDV<40 cm/s. 2. Less than 50% stenosis=ICA PSV < 125 cm/s: ratio < 2.0: ICA EDV<40 cm/s. 3. 50 to 69% stenosis=ICA PSV of 125 to 230 cm/s: ration 2.0 ? 4.0: ICA EDV 40-100 cm/s. 4. Greater than 70% stenosis to near occlusion= ICA PSV > 230 cm/s: ratio > 4.0: ICA EDV > 100 cm/s. 5. Near occlusion= ICA PSV velocities may be low or undetectable: variable ratio and ICA EDV. 6. Total occlusion=unable to detect flow.
[2017-02-01] MEDS ORDERED: DEXTROSE 10 % IN WATER 250 ML IV STA (19:10)
--- NOTE | 2017-02-01 19:29 | P.CNNES ---
History of Present Illness Consult date: 02/01/17 Reason for Consult: Patient being evaluated for balance difficulties and altered mental status. History of Present Illness: This patient is a 89-year-old right-handed white female who was brought into the emergency room at the [facility] for evaluation of balance difficulties. Patient has had 3 admissions since the beginning of this year due to symptoms of TIA. This admission she was complaining of being off balance. The patient apparently lives at home and is under the care of her daughter. Daughter states that she stands and states that she is off balance. She does not experience any true spinning or vertigo however she does sometimes use the term dizziness. The daughter states she never has vertigo but is rather more of a loss of balance and disequilibrium. Patient denies any ear pain or ear discharge. She has not had any recent ear infection. She denies any tinnitus in either ear at this time. The daughter is also noted that frequently she has episodes of expressive aphasia. As noted she has been evaluated for TIAs in the past. The patient was seen in the emergency room by Dr. Sutherland. He computed tomography scan of the brain was ordered. CAT scan of the brain reveals significant frontal lobe atrophy. 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 Bilateral scattered white matter ischemic changes are noted as well. According to the daughter the patient does have early signs of dementia. She is not on any specific treatment. She does frequently perseverate and repeats herself according to the daughter. She is under care of her daughter who make sure she is always seen with someone. The patient states that her balance problems are only noted when she is standing or ambulating. She does not experience this when sitting in a chair. Apparently she has been prescribed Antivert 3 times a day which is not helping her condition at all. On further questioning the patient states she does experience burning in both of her feet. She was told by her primary care physician that she is borderline diabetic. We've recommended further evaluation for diabetes in this patient. She does have some sensory loss in both lower extremities as well. The patient is now admitted and neurology has been consulted for further evaluation and recommendations. Review of Systems Constitutional: Denies chills, Denies fever Eyes: denies blurred vision, denies pain Ears, nose, mouth and throat: Denies headache, Denies sore throat Cardiovascular: Denies chest pain, Denies shortness of breath Respiratory: Denies cough Gastrointestinal: Denies abdominal pain, Denies diarrhea, Denies nausea, Denies vomiting Genitourinary: Denies dysuria, Denies hematuria Musculoskeletal: Denies myalgias Integumentary: Denies pruritus, Denies rash Neurological: Reports ataxia, Reports balance difficulties, Reports change in mentation, Reports confusion, Reports gait dysfunction, Reports lack of coordination, Denies numbness, Denies weakness Psychiatric: Denies anxiety, Denies depression Endocrine: Denies fatigue, Denies weight change Past Medical History Past Medical History: CVA/TIA, GERD/Reflux, Hyperlipidemia, Hypertension, Myocardial Infarction (PR), Osteoarthritis (OA) Additional Past Medical History / Comment(s): UTI Last Myocardial Infarction Date:: UNK History of Any Multi-Drug Resistant Organisms: None Reported Past Surgical History: Heart Catheterization, Hysterectomy Additional Past Surgical History / Comment(s): cataracts Past Anesthesia/Blood Transfusion Reactions: Motion Sickness Past Psychological History: Anxiety Additional Psychological History / Comment(s): PAXIL Smoking Status: Never smoker Past Alcohol Use History: None Reported Past Drug Use History: None Reported - Past Family History Father Family Medical History: Unable to Obtain Additional Family Medical History / Comment(s): AT AGE 60 UNSURE OF HX, BLEEDING ULCERS Mother Family Medical History: CVA/TIA, Hyperlipidemia, Hypertension Additional Family Medical History / Comment(s): AT AGE 87 Medications and Allergies Home Medications Medication Instructions Recorded Confirmed Type Omeprazole [PriLOSEC] 20 mg PO AC-BRKFST 06/08/14 02/01/17 History Aspirin EC [Ecotrin Low Dose] 81 mg PO DAILY 09/21/16 02/01/17 History Meclizine [Antivert] 12.5 mg PO TID PRN 09/21/16 02/01/17 History Nitrofurantoin Monohyd/M-Cryst 100 mg PO DAILY 09/21/16 02/01/17 History [Macrobid] Mirtazapine [Remeron] 15 mg PO HS 12/08/16 02/01/17 History amLODIPine [Norvasc] 5 mg PO DAILY 12/08/16 02/01/17 History ALPRAZolam [Xanax] 0.25 mg PO HS PRN 02/01/17 02/01/17 History Multivitamins, Thera [Multivitamin 1 tab PO DAILY 02/01/17 02/01/17 History (formulary)] Sulfamethox-Tmp 800-160Mg [Bactrim 1 tab PO Q12HR 02/01/17 02/01/17 History DS 800-160 mg] Thiamine [Vitamin B-1] 100 mg PO DAILY 02/01/17 02/01/17 History Allergies Allergy/AdvReac Type Severity Reaction Status Date / Time Penicillins Allergy Rash/Hives Verified 02/01/17 12:46 Physical Examination - Vital Signs Vital Signs: Vital Signs Temp Pulse Pulse Resp BP BP BP 02/01/17 17:11 97.0 F L 95 16 02/01/17 16:24 97.4 F L 93 18 134/63 02/01/17 15:04 97.4 F L 86 18 131/70 02/01/17 14:04 97 F L 90 18 138/90 02/01/17 13:31 103 H 18 105/63 02/01/17 12:47 102 H 18 88/51 84/50 02/01/17 12:06 98.2 F 105 H 20 84/48 BP Pulse Ox 02/01/17 17:11 121/60 97 02/01/17 16:24 95 02/01/17 15:04 97 02/01/17 14:04 96 02/01/17 13:31 99 02/01/17 12:47 107/55 02/01/17 12:06 98 Intake and Output 02/01/17 02/01/17 02/01/17 06:59 14:59 22:59 Other: Voiding Method Diaper Weight 68.039 kg 72.6 kg Patient Weight 02/02/17 06:59 Weight 72.6 kg - Constitutional General appearance: average body habitus, cooperative - EENT EENT: PERRL, mucous membranes moist - Respiratory Respiratory: lungs clear, normal breath sounds - Cardiovascular Cardiovascular: regular rate, normal S1, normal S2 Extremities: no peripheral edema bilaterally - Gastrointestinal Gastrointestinal: normoactive bowel sounds - Integumentary Integumentary: normal - Neurologic Cranial nerve examination: PERRL, VFF, V1/V2/V3 grossly intact, face symmetric, tongue midline, intact gag reflex, intact corneal reflex, normal palatal elevation Speech examination: intact Sensorimotor examination: intact Detailed motor examination: grossly full strength in all extremities Motor examination - right side: 4/5: biceps, triceps, wrist flexion, wrist extension, remote sensing specialist, hip flexors, knee extensors, dorsiflexion, toe extension (EHL) , plantarflexion Motor examination - left side: 4/5: biceps, triceps, wrist flexion, wrist extension, remote sensing specialist, hip flexors, knee extensors, dorsiflexion, toe extension (EHL) , plantarflexion Detailed sensory examination: light touch (There is decrease pinprick and vibratory sensation loss in both lower extremities.) Reflex and gait examination: intact Reflexes: 1+: ankle, bicep, knee, tricep - Musculoskeletal Musculoskeletal: no pain - Psychiatric Psychiatric: mood/affect appropriate, cooperative Results - Laboratory Findings CBC and BMP: 02/01/17 12:30 02/01/17 12:30 Abnormal Lab Findings: Abnormal Labs 02/01/17 02/01/17 02/01/17 12:30 12:30 12:30 Lymphocytes # 0.8 L Sodium 132 L Potassium 5.6 H Carbon Dioxide 21 L BUN 35 H Creatinine 2.38 H Total Creatine Kinase 183 H CK-MB (CK-2) 7.6 H* Troponin I 0.064 H* Urine Blood Urine RBC Urine WBC Hyaline Casts Urine Mucus 02/01/17 13:36 Lymphocytes # Sodium Potassium Carbon Dioxide BUN Creatinine Total Creatine Kinase CK-MB (CK-2) Troponin I Urine Blood Trace H Urine RBC 6 H Urine WBC 6 H Hyaline Casts 15 H Urine Mucus Rare H Assessment and Plan (1) Diabetic peripheral neuropathy Status: Acute Code(s): E11.42 - TYPE 2 DIABETES MELLITUS WITH DIABETIC POLYNEUROPATHY (2) Metabolic encephalopathy Status: Acute Code(s): G93.41 - METABOLIC ENCEPHALOPATHY (3) Gait disorder Status: Acute Code(s): R26.9 - UNSPECIFIED ABNORMALITIES OF GAIT AND MOBILITY (4) TIA (transient ischemic attack) Status: Acute Code(s): G45.9 - TRANSIENT CEREBRAL ISCHEMIC ATTACK, UNSPECIFIED Plan: This patient is a 89-year-old right-handed white female who was admitted to hospital with balance dysfunction. She describes a sense of being off balance when walking. Symptoms have been recurrent over the last several months. She has been evaluated several times for TIA symptoms. She is also been evaluated for true vertigo and is on Antivert. This is not helping her condition at all. She does describe symptoms of peripheral neuropathy in the lower extremity. She was told that she is borderline diabetic. We've recommended further laboratory testing for evaluation of diabetes mellitus. She is undergoing carotid Doppler ultrasound however her most recent study revealed only 50% stenosis bilaterally. We will await these results. Her computed tomography scan of the brain does reveal significant frontal lobe atrophy. This could be early signs for dementia. According to the daughter she is seeing early symptoms of dementia as a patient does have evidence of perseveration and some degree of cognitive decline. We would recommend further laboratory testing for peripheral neuropathy. She will also benefit from EMG study in the outpatient setting. We will continue close neurological follow-up of this patient during this admission. 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 She should continue on aspirin for secondary stroke prevention. Her overall prognosis at this time remains very guarded. Case was discussed at length with the patient's daughter. All of her questions were answered. She is aware of her mother's guarded condition. We will continue close neurological follow-up of this patient during this admission. Time with Patient: Greater than 30
[2017-02-01] MEDS ORDERED: HYDROcodone/APAP 5-325MG 1 EACH TAB PO PRN (19:49)
[2017-02-01] MEDS ORDERED: CALCIUM CARBONATE 500 MG CHEWABLE PO PRN (19:50)
[2017-02-01] MEDS: ATORVASTATIN 40 MG TAB PO SCH (20:42)
[2017-02-01] MEDS: PANTOPRAZOLE 40 MG/10 ML VIAL IVP SCH (20:42)
[2017-02-01] MEDS: MIRTAZAPINE 15 MG TAB PO SCH (20:43)
[2017-02-02] MEDS: SODIUM CHLORIDE 0.9% 1,000 ML IV SCH ×3 (02:39→20:00)
[2017-02-02 07:23] LABS: Calcium 8.9 mg/dL (8.4-10.2); Potassium 5.2 mmol/L (3.5-5.1)
[2017-02-02] MEDS ORDERED: PANTOPRAZOLE 40 MG TABLET PO SCH (07:30)
[2017-02-02 07:33] LABS: Basophils % (A) 0 %; CH 28.9; CHCM 33.3; Eosinophils # (A) 0.1 k/uL (0-0.7); Eosinophils % (A) 1 %; HCT 29.4 % (34.0-46.0); HDW 2.59; Luc # (Auto) 0.13; Luc % (Auto) 3; Lymphocytes # (A) 0.8 k/uL (1.0-4.8); Lymphocytes % (A) 16 %; MCH 29.5 pg (25.0-35.0); MCHC 33.8 g/dL (31.0-37.0); MCV 87.2 fL (80.0-100.0); Mean Platelet Volume 7.1; Monocytes # (A) 0.4 k/uL (0-1.0); Monocytes % (A) 9 %; Neutrophils # (A) 3.5 k/uL (1.3-7.7); Neutrophils % (A) 71 %; RBC 3.37 m/uL (3.80-5.40); RDW 14.6 % (11.5-15.5); WBC 4.9 k/uL (3.8-10.6); WBC (Perox) 5.13
[2017-02-02 07:37] LABS: HGB 9.9 gm/dL (11.4-16.0)
[2017-02-02 09:09] LABS: C Reactive Protein 11.7 mg/L (<10.0)
[2017-02-02] MEDS: PANTOPRAZOLE 40 MG/10 ML VIAL IVP SCH (10:09)
[2017-02-02] MEDS: CLOPIDOGREL 75 MG TAB PO SCH (10:09)
[2017-02-02] MEDS: MULTIVITAMINS, THERA 1 EACH TAB PO SCH (10:09)
[2017-02-02] MEDS: ASPIRIN 81 MG CHEW PO SCH (10:09)
[2017-02-02] MEDS: THIAMINE 100 MG TAB PO SCH (10:09)
[2017-02-02 11:07] LABS: Erythrocyte Sedimentation Rate 13 mm/hr (0-20)
[2017-02-02 11:31] VITALS: BMI 29.5
--- NOTE | 2017-02-02 12:30 | CONS ---
DATE OF CONSULTATION: CHIEF COMPLAINT: TIA. REASON FOR CONSULTATION: Mild elevation in troponin. This is an 89-year-old lady with history of hypertension and dyslipidemia who presented to the hospital having had a transient episode of loss of balance. Cardiology had been consulted because of mild elevation in troponin. She is anemic with a hemoglobin of around 10. Her BUN and creatinine are elevated at 37 and 1.8. At the time of my evaluation this morning, patient appears comfortable at rest. Hemodynamically stable and in no apparent distress. Patient had a carotid duplex study that revealed moderate carotid stenosis bilaterally. She has had 3 sets of troponins that read 0.06, 0.04 and 0.04. EKG shows sinus rhythm without acute ST-T wave changes. Past medical history is significant for hypertension, dyslipidemia, prior episodes of dizziness. Medications at home include Plavix 75 mg q. daily, Norvasc 5 q. daily, Prilosec, multivitamins, Antivert, Zestril 10 q. daily, Lipitor 40 q. daily, aspirin and Xanax. Allergic to PENICILLIN. Family history is negative for premature coronary artery disease. SOCIAL HISTORY: Negative for current smoking, EtOH abuse or drug abuse. REVIEW OF SYSTEMS: HEENT: Unremarkable. CARDIAC: As described above. RESPIRATORY: Negative. GI: Negative. GENITOURINARY: Negative. MUSCULOSKELETAL: Negative. ENDOCRINE: Negative. HEMATOLOGICAL: Negative. DERMATOLOGY: Negative. CONSTITUTIONAL: Negative. ONCOLOGICAL: Negative. MANAGER RECRUITING: Significant for loss of balance. On exam, patient is comfortable at rest. Heart rate is around 100 beats per minute, blood pressure is 104/57, respiratory rate is 18. There is no jugular venous distention. ( ) is diminished. Heart exam revealed first and second heart sounds. No gallop. Abdomen is soft. Exam of the extremities did not reveal any edema. Peripheral pulses are felt. EKG showed that the patient is in normal sinus rhythm. Tropes are slightly elevated. Hemoglobin is 9.9. Potassium is 5.2. BUN is 37. Creatinine is 1.8. ASSESSMENT: 1. Mild troponin elevation secondary to renal insufficiency. 2. Transient loss of balance, probably related to transient ischemic attack. 3. Renal insufficiency. PLAN: From cardiac standpoint, patient is doing well. I will repeat an echo on her to assess her LV function and wall motion. If the echo looks normal, we will continue with the current medical therapy and arrange follow up with cardiology. Patient does not require further cardiac evaluation at this time. She will continue with optimal medical therapy.
[2017-02-02 13:49] LABS: Hemoglobin A1C 6.2 % (4.2-6.1)
--- NOTE | 2017-02-02 16:16 | CONS ---
DATE OF CONSULTATION: 02/02/2017 REASON FOR CONSULTATION: Renal failure. HISTORY OF PRESENT ILLNESS: Patient is an 89-year-old female who was admitted to the hospital with complaints of dizziness and weakness. She also had altered mentation. Patient was found to be hypotensive with systolic blood pressure in the 80s when she came in. Her creatinine was at 2.38 mg/dL. Prior creatinine was 1.0 on 12/10/2016. According to the family, it appears that previously patient's blood pressure had been uncontrolled and she had been running quite high; medications were adjusted. At this time patient is maintained on IV fluids at 50 mL/hour. She states she is voiding well. On examination, blood pressure is 104/57, heart rate of 112 per minute. Patient is afebrile. EXAMINATION OF THE HEART: S1 and S2. EXAMINATION OF THE LUNGS: Bilateral breath sounds are heard. ABDOMEN: Soft, nontender. Examination of lower extremities shows no evidence of edema. S[employer]OL [employer] exam is grossly intact. Patient is moving all 4 extremities. Labs show sodium 134, potassium 5.2, BUN 37, serum creatinine 1.85. UA is quite benign with trace blood noted; no protein. ASSESSMENT: 1. Acute kidney injury secondary to hypotension, hypoperfusion, currently non-oliguric with improvement in renal function with improved blood pressure. Continue with IV fluids at 50 mL/hour for now. Repeat labs in a.m. Continue to avoid nephrotoxic agents. Hold off on antihypertensive medications. No evidence of infection noted at this time. Her UA is quite benign. 2. Mild hyperkalemia. Expect improvement with improving renal function. 3. Anemia with no active bleeding noted. Rule out iron deficiency. Iron saturation was noted to be 22%, but that was in 2014. I will re-order an iron profile. 4. History of hypertension PLAN: Repeat labs in a.m. Continue IV fluids. Check iron studies. Hold off on all antihypertensive medications. Thank you for this consultation. Will continue to follow the patient with you during her hospitalization.
[2017-02-02 16:48] LABS: % Iron Saturation 13.9 % (20-50)
[2017-02-02] MEDS: ATORVASTATIN 40 MG TAB PO SCH (19:55)
[2017-02-02] MEDS: MIRTAZAPINE 15 MG TAB PO SCH ×2 (19:55→20:29)
--- NOTE | 2017-02-02 22:06 | P.PN ---
Subjective This patient is a 89-year-old female who is being evaluated for gait imbalance. Patient has been symptomatic for the past several months. She was brought in to the hospital for evaluation of weakness and loss of balance. Her neurological examination yesterday suggested possibility of diffuse peripheral neuropathy. She underwent some laboratory testing today and her hemoglobin A1c is 6.2. Total cholesterol is 154. Patient does have sensory loss in both lower extremities. This will be further evaluated in the outpatient setting with an EMG study in the neurology clinic. Patient will arrange for this when she is discharged. Patient is being evaluated for possibility of NPH. Apparently the admitting physician Dr. Joshua jacob ordered a lumbar puncture for opening and closing pressures. We will wait to see these results. Patient does not give classic triad for NPH at this time. We will continue close neurological follow-up of this patient. Patient did undergo routine EEG today which was reviewed. EEG is moderately slow with no epileptiform discharges seen. Her overall prognosis at this time remains guarded. Objective - Vital Signs Vital signs: Vital Signs Temp 97.1 F L 02/02/17 20:00 Pulse 100 02/02/17 20:00 Resp 16 02/02/17 20:00 BP 104/57 02/02/17 20:00 Pulse Ox 97 02/02/17 20:00 Intake & Output 02/02/17 02/02/17 02/03/17 06:59 18:59 06:59 Intake Total 750 943 Output Total 450 650 Balance 300 293 Weight 73.1 kg 73.1 kg Intake: IV 500 463 Sodium Chloride 0.9% 1, 500 463 000 ml @ 50 mls/hr IV . Q20H [facility] Rx#:[id number] Intake, IV Titration 250 Amount Dextrose 10 % in Water 250 250 ml @ 999 mls/hr IV ONCE STA Rx#:[id number] Oral 480 Output: Urine 450 650 Other: Voiding Method Diaper Diaper Diaper - Exam Physical examination: PHYSICAL EXAMINATION: Patient is resting comfortably in bed. VITAL SIGNS: Blood pressure is [104/57]. Heart rate is [100]. Respiration is [16 ]. Temperature is [97.1]. HEENT: Head is atraumatic, neck is supple, there were no carotid bruits. CHEST: Lungs are clear to auscultation and percussion. CARDIAC: S1, S2 normal rate and rhythm. There is no murmur. ABDOMEN: Soft and nontender. Bowel sounds are present. EXTREMITIES: There is no pedal edema. Peripheral pulses are present. Neurological examination: Patient's neurological examination is unchanged from yesterday. - Labs CBC & Chem 7: 02/02/17 06:21 02/02/17 06:21 Labs: Abnormal Lab Results - Last 24 Hours (Table) 02/02/17 02/02/17 02/02/17 Range/Units 00:37 06:21 06:21 RBC 3.37 L (3.80-5.40) m/uL Hgb 9.9 L D (11.4-16.0) gm/dL Hct 29.4 L (34.0-46.0) % Lymphocytes # 0.8 L (1.0-4.8) k/uL Sodium 134 L (137-145) mmol/L Potassium 5.2 H (3.5-5.1) mmol/L Chloride 108 H (98-107) mmol/L Carbon Dioxide 17 L (22-30) mmol/L BUN 37 H (7-17) mg/dL Creatinine 1.85 H (0.52-1.04) mg/dL Hemoglobin A1c (4.2-6.1) % % Saturation (20-50) % Troponin I 0.040 H* (0.000-0.034) ng/mL C-Reactive Protein 11.7 H (<10.0) mg/L HDL Cholesterol 61 H (40-60) mg/dL 02/02/17 02/02/17 Range/Units 06:21 06:21 RBC (3.80-5.40) m/uL Hgb (11.4-16.0) gm/dL Hct (34.0-46.0) % Lymphocytes # (1.0-4.8) k/uL Sodium (137-145) mmol/L Potassium (3.5-5.1) mmol/L Chloride (98-107) mmol/L Carbon Dioxide (22-30) mmol/L BUN (7-17) mg/dL Creatinine (0.52-1.04) mg/dL Hemoglobin A1c 6.2 H (4.2-6.1) % % Saturation 13.9 L (20-50) % Troponin I (0.000-0.034) ng/mL C-Reactive Protein (<10.0) mg/L HDL Cholesterol (40-60) mg/dL Assessment and Plan (1) Diabetic peripheral neuropathy Status: Acute Code(s): E11.42 - TYPE 2 DIABETES MELLITUS WITH DIABETIC POLYNEUROPATHY (2) Metabolic encephalopathy Status: Acute Code(s): G93.41 - METABOLIC ENCEPHALOPATHY (3) Gait disorder Status: Acute Code(s): R26.9 - UNSPECIFIED ABNORMALITIES OF GAIT AND MOBILITY (4) TIA (transient ischemic attack) Status: Acute Code(s): G45.9 - TRANSIENT CEREBRAL ISCHEMIC ATTACK, UNSPECIFIED Plan: This patient is a 89-year-old female who was admitted to hospital with weakness and unsteady gait. Patient has been complaining off and on for several months of feeling off balance. She does have evidence suggesting a diffuse peripheral neuropathy. She'll be further evaluated in the outpatient neurology clinic with EMG study. At this time the patient apparently is being scheduled for a lumbar puncture to obtain opening and closing pressures. There is some concern for NPH. We will await the test results of the spinal fluid analysis and we'll give further recommendations. Patient seems to be doing much better today and is more awake and alert. We will continue close neurological follow-up of this patient during this admission. Her overall prognosis at this time remains guarded.
[2017-02-03 07:05] LABS: Basophils % (A) 0 %; CH 28.9; CHCM 32.9; Eosinophils # (A) 0.1 k/uL (0-0.7); Eosinophils % (A) 3 %; HDW 2.57; HGB 9.7 gm/dL (11.4-16.0); Luc # (Auto) 0.11; Luc % (Auto) 4; Lymphocytes # (A) 0.8 k/uL (1.0-4.8); Lymphocytes % (A) 26 %; MCH 28.5 pg (25.0-35.0); MCHC 32.2 g/dL (31.0-37.0); MCV 88.3 fL (80.0-100.0); Mean Platelet Volume 6.7; Monocytes # (A) 0.3 k/uL (0-1.0); Monocytes % (A) 8 %; Neutrophils # (A) 1.9 k/uL (1.3-7.7); Neutrophils % (A) 60 %; RDW 14.6 % (11.5-15.5); WBC 3.1 k/uL (3.8-10.6); WBC (Perox) 3.37
--- NOTE | 2017-02-03 07:09 | HP ---
DATE OF ADMISSION: REASON FOR ADMISSION: Generalized weakness and lightheadedness. This is an 89-year-old female with a previous history of stroke comes into the hospital with acute worsening of generalized weakness. On obtaining a detailed history from the patient and the family, apparently the patient has been having significant forgetfulness over the last 3 years. Has had balance issues over the same period of time and has had urinary incontinence as well. The patient's memory has been progressively getting worse over the same period of time. Patient has had a previous stroke with right arm weakness. Patient was admitted to the hospital, was noted to have significant hypotension. Systolic blood pressure in the 80s. Patient's main complaints having generalized weakness and worsening dizziness over the last day or 2 prior to admission. Patient has had multiple bouts of loose stools on the day of admission as well. Patient today states that she is feeling significantly better and was able to ambulate without much difficulty, which is close to her baseline. Patient was also noted to have some renal dysfunction with non-anion gap metabolic acidosis as resolved. The patient has received 2 L of crystalloids in the emergency room with an improved creatinine today. Past medical history includes a CVA, hypertension, GERD, dyslipidemia, history of TN, osteoarthritis. Past surgical history includes cardiac catheterization, hysterectomy. SOCIAL HISTORY: Lifelong nonsmoker. No alcohol or illicit drug use. Allergies to PENICILLIN. Medications include: 1. Omeprazole. 2. Meclizine. 3. Aspirin. 4. Nitrofurantoin. 5. Mirtazapine. 6. Amlodipine. 7. Xanax. 8. Multivitamin. 9. Bactrim. 10. Thiamine. FAMILY HISTORY: Not pertinent to the current admission. PHYSICAL EXAM: VITALS: Temperature is 98.2, heart rate is 105, blood pressure 105/63, saturating 98% on room air. GENERALLY: Patient appears to be alert, oriented x3. HEENT: The pupils are equal and reactive to light and accommodation. HEART: S1, S2 present. No murmur appreciated. LUNGS: Good air entry. No wheezing or rhonchi noted. ABDOMINAL EXAM: Soft, nontender, no organomegaly appreciated. GENITOURINARY: No Quezada in place. EXTREMITIES: Pulses can be palpated distally. Denies any tenderness on gross palpation. SKIN: There is a previous scar on the right knee consistent with knee replacement in the past. NEUROLOGICALLY: Grossly cranial nerves 2-12 intact. No motor or sensory deficits noted. ( ) today are noted to be hemoglobin 9.9, hematocrit 29.4, white count of 4.9, platelets of 191. Sodium 134, potassium 4.2, chloride 100, bicarb 17. BUN 37, creatinine 1.85. Troponin peak of 0.048. ASSESSMENT AND PLAN: 1. Symptomatic hypotension likely due to dehydration. 2. Indeterminate troponin leak likely due to renal dysfunction. 3. Coronary artery disease. 4. Chronic history of dizziness, which patient was placed on Antivert which has not shown improvement. 5. Patient also had a dementia and urinary incontinence with some degree of gait dysfunction. One needs to consider ruling out normal pressure hydrocephalus as well. 6. Acute kidney injury due to acute kidney injury with acute tubular necrosis, hyaline casts noted due to prerenal azotemia. 7. Anemia of unknown etiology. 8. Previous cerebrovascular accident. PLAN: As discussed will have an anesthesiologist obtain the opening pressure by performing a lumbar puncture to rule out normal pressure hydrocephalus. Patient's renal function appears to be improving. Has received 2 L of crystalloid. Will increase the fluids to 75 mL per hour. If the diagnostic test is positive, the patient has already been evaluated by Dr. Taylor, which appears that he has also discussed the following diagnoses with the patient's family. The patient can follow up with Dr. Taylor on an outpatient basis for her management. This was discussed with the patient and the family. DVT prophylaxis. Encourage ambulation.
[2017-02-03 07:18] LABS: Calcium 8.9 mg/dL (8.4-10.2); Potassium 4.8 mmol/L (3.5-5.1)
--- NOTE | 2017-02-03 08:52 | EEG ---
DATE OF SERVICE: 02/02/2017 INDICATIONS FOR EXAMINATION: This patient is an 89-year-old female being evaluated for loss of balance and early dementia. AGE: 89Y EEG FINDINGS: A routine 21-channel, awake digital EEG recording was accomplished utilizing the 10 to 20 international system with bipolar and referential montages. The background activity in the most alert resting state consists of a low to medium amplitude, fairly well-developed and well-sustained 6 to 7 Hz activity over the posterior head regions. This posterior rhythm attenuates to eye opening. There is a small amount of low amplitude 18 to 20 Hz beta activity seen maximally over the anterior head regions. Muscle and movement artifact was observed on a few occasions during the tracing. Hyperventilation was not performed. Photic stimulation at flash frequencies of 2 to 30 Hz produced a minimal occipital driving response. No epileptiform discharges were seen. IMPRESSION: This EEG is mildly abnormal in diffuse fashion due to slight slowing of the EEG background. The EEG failed to reveal any focal, lateralized or epileptiform abnormalities. Clinical correlation is recommended.
[2017-02-03] MEDS: SODIUM CHLORIDE 0.9% 1,000 ML IV SCH (09:19)
[2017-02-03] MEDS: PANTOPRAZOLE 40 MG/10 ML VIAL IVP SCH (09:21)
[2017-02-03] MEDS: CLOPIDOGREL 75 MG TAB PO SCH (09:23)
[2017-02-03] MEDS: THIAMINE 100 MG TAB PO SCH (09:23)
[2017-02-03] MEDS: MULTIVITAMINS, THERA 1 EACH TAB PO SCH (09:23)
[2017-02-03] MEDS: ASPIRIN 81 MG CHEW PO SCH (09:23)
--- NOTE | 2017-02-03 10:24 | ECHOF ---
Referral Reason:tia MEASUREMENTS -------- HEIGHT: 157.5 cm WEIGHT: 73.0 kg BP: 98/58 IVSd: 1.3 cm (0.6 - 1.1) LVIDd: 4.6 cm (3.9 - 5.3) LVPWd: 1.3 cm (0.6 - 1.1) IVSs: 1.8 cm LVIDs: 2.6 cm LVPWs: 1.9 cm LAESV Index (A-L): 19.58 ml/m AV Cusp: 1.8 cm (1.5 - 2.6) MV E Juanito: 0.85 m/s MV DecT: 311 ms MV A Juanito: 1.41 m/s MV E/A Ratio: 0.60 RAP: 5.00 mmHg RVSP: 21.98 mmHg FINDINGS -------- Sinus rhythm. This was a technically adequate study. There is mild concentric left ventricular hypertrophy. Overall left ventricular systolic function is low-normal with, an EF between 50 - 55 %. The right ventricle is normal in size and function. Normal LA size by volume 22+/-6 ml/m2. The right atrium is normal in size. There is mild aortic valve sclerosis. There is no evidence of aortic regurgitation. There is no evidence of aortic stenosis. The mitral valve leaflets are mildly thickened. Mild mitral annular calcification present. There is trace to mild mitral regurgitation. Mildly calcified chordae. Trace tricuspid regurgitation present. There is no evidence of pulmonary hypertension. The right ventricular systolic pressure, as measured by Doppler, is 21.98mmHg. The pulmonic valve was not well visualized. The aortic root size is normal. Normal inferior vena cava with normal inspiratory collapse consistent with estimated right atrial pressure of 5 mmHg. The pericardium is normal. There is no pericardial effusion. CONCLUSIONS -------- 1. Sinus rhythm. 2. There is no evidence of pulmonary hypertension. 3. The right ventricular systolic pressure, as measured by Doppler, is 21.98mmHg. 4. The pulmonic valve was not well visualized. 5. The aortic root size is normal. 6. There is no pericardial effusion. 7. Overall left ventricular systolic function is low-normal with, an EF between 50 - 55 %. 8. Normal LA size by volume 22+/-6 ml/m2. 9. There is mild aortic valve sclerosis. 10. The mitral valve leaflets are mildly thickened. 11. Mild mitral annular calcification present. 12. There is trace to mild mitral regurgitation. 13. Mildly calcified chordae. 14. Calcified chordae. 15. Trace tricuspid regurgitation present. DIETARY MANAGER: Shivam Escobar RDCS
--- NOTE | 2017-02-03 14:15 | P.PN ---
Subjective An 89-year-old female with a history of hypertension and dyslipidemia. She presented to the hospital having had a transient episode of loss of balance. ALLERGY was consulted because of mild elevation in troponin. Upon presentation she was found to be anemic with a hemoglobin of around 10. Her BUN and creatinine were elevated at 37 and 1.8. She underwent carotid duplex study that revealed moderate carotid stenosis bilaterally. Check 3 sets of troponins that read 0.06, 0.04 and 0.04. EKG showed sinus rhythm without acute ST-T wave changes. She underwent echocardiogram that showed an ejection fraction of 50-55 %. An examination today, patient is feeling quite well. Vital signs are stable and she is in no apparent distress. Objective - Vital Signs Vital signs: Vital Signs Temp 97.5 F L 02/03/17 08:00 Pulse 96 02/03/17 08:00 Resp 16 02/03/17 08:00 BP 123/62 02/03/17 08:00 Pulse Ox 100 02/03/17 08:00 Intake & Output 02/02/17 02/03/17 02/03/17 18:59 06:59 18:59 Intake Total 943 770 360 Output Total 650 75 200 Balance 293 695 160 Weight 73.1 kg 73.6 kg Intake: IV 463 770 Sodium Chloride 0.9% 1, 463 770 000 ml @ 75 mls/hr IV . [id number] [facility] Rx#:[id number] Oral 480 360 Output: Urine 650 75 200 Other: Voiding Method Diaper Toilet Toilet Diaper # Voids 1 1 - Exam PHYSICAL EXAMINATION: HEENT: Head is atraumatic, normocephalic. Pupils equal, round. Neck is supple. There is no elevated jugular venous pressure. HEART EXAMINATION: Heart sounds regular, S1 and S2 normal. No murmur or gallop heard. CHEST EXAMINATION: Lungs rodríguez diminished air entry. No chest wall tenderness is noted on palpation or with deep breathing. ABDOMEN: Soft, nontender. Bowel sounds are heard. No organomegaly noted. EXTREMITIES: 2+ peripheral pulses with no evidence of peripheral edema and no calf tenderness noted. NEUROLOGIC patient is awake, alert and oriented x3. . - Labs CBC & Chem 7: 02/03/17 06:27 02/03/17 06:27 Labs: Abnormal Lab Results - Last 24 Hours (Table) 02/02/17 02/03/17 02/03/17 Range/Units 06:21 06:27 06:27 WBC 3.1 L (3.8-10.6) k/uL RBC 3.40 L (3.80-5.40) m/uL Hgb 9.7 L (11.4-16.0) gm/dL Hct 30.0 L (34.0-46.0) % Lymphocytes # 0.8 L (1.0-4.8) k/uL Chloride 113 H (98-107) mmol/L Carbon Dioxide 18 L (22-30) mmol/L BUN 28 H (7-17) mg/dL Creatinine 1.48 H (0.52-1.04) mg/dL % Saturation 13.9 L (20-50) % Assessment and Plan Plan: Assessment and plan #1 mild troponin elevation likely secondary to renal insufficiency #2 TIA with transient loss of balance #3 renal insufficiency #4 hypertension #5 dyslipidemia From cardiac standpoint, no further cardiac workup is warranted. She will follow-up as an outpatient in 6-8 weeks. The above dictated assessment and findings were discussed with signing physician. The impression and plan of care have been directed as dictated. Stacy Peters, Nurse Practitioner, acting as scribe for signing physician.
--- NOTE | 2017-02-03 15:50 | PN ---
Patient is seen for followup for acute kidney injury. She was admitted to the hospital with dizziness and hypotension. Serum creatinine was at 2.38 mg/dL. She is maintained on IV fluids and her creatinine is down to 1.48. Patient is feeling better. She has had good urine output. She denies any significant complaints. On examination, blood pressure is 136/69, heart rate 110 per minute. She is afebrile. EXAMINATION OF THE HEART: S1 and S2. EXAMINATION OF THE LUNGS: Decreased breath sounds in bases. ABDOMEN: Soft, nontender. Examination of lower extremities shows no evidence of edema. Labs show sodium 139, potassium 4.8, BUN 28, serum creatinine 1.48. Hemoglobin 9.7 g/dL. ASSESSMENT: 1. Acute kidney injury secondary to hypotension, hypoperfusion, currently improved. Patient is eating fairly okay. I will discontinue her IV fluids. 2. Anemia with evidence of significant iron deficiency. Will maintain patient on IV iron. 3. Metabolic acidosis secondary to renal failure and some degree of acidosis from the saline as well. 4. Hypertension, currently well controlled. 5. Gait disorder and dizziness on initial admission, being followed by Neurology. Scheduled for lumbar puncture for opening and closing pressures. Patient has been feeling off balance for several months prior to admission and it was exacerbated recently by her hypotension. PLAN: Hep-Lock IV fluids. Encourage increased oral intake. Start IV iron. Repeat labs in a.m. Continue to avoid nephrotoxic agents.
--- NOTE | 2017-02-03 16:11 | P.PN ---
Subjective This is an 89-year-old female with a previous history of stroke comes into the hospital with acute worsening of generalized weakness. On obtaining a detailed history from the patient and the family, apparently the patient has been having significant forgetfulness over the last 3 years. Has had balance issues over the same period of time and has had urinary incontinence as well. The patient's memory has been progressively getting worse over the same period of time. Patient has had a previous stroke with right arm weakness. Patient was admitted to the hospital, was noted to have significant hypotension. Systolic blood pressure in the 80s. Patient's main complaints having generalized weakness and worsening dizziness over the last day or 2 prior to admission. Patient has had multiple bouts of loose stools on the day of admission as well. Patient today states that she is feeling significantly better and was able to ambulate without much difficulty, which is close to her baseline. Patient was also noted to have some renal dysfunction with non-anion gap metabolic acidosis as resolved. The patient has received 2 L of crystalloids in the emergency room with an improved creatinine today. 02/03/2017 states that she is improved is able to ambulate however not back to her baseline No headaches blurry vision nausea vomiting chest pain difficulty breathing abdominal pain urinary urgency or frequency is reported PHYSICAL EXAM: GENERALLY: Patient appears to be alert, oriented x3. HEENT: The pupils are equal and reactive to light and accommodation. HEART: S1, S2 present. No murmur appreciated. LUNGS: Good air entry. No wheezing or rhonchi noted. ABDOMINAL EXAM: Soft, nontender, no organomegaly appreciated. GENITOURINARY: No Quezada in place. EXTREMITIES: Pulses can be palpated distally. Denies any tenderness on gross palpation. SKIN: There is a previous scar on the right knee consistent with knee replacement in the past. NEUROLOGICALLY: Grossly cranial nerves 2-12 intact. No motor or sensory deficits noted. . Objective - Vital Signs Vital signs: Vital Signs Temp 96.7 F L 02/03/17 12:00 Pulse 110 H 02/03/17 12:00 Resp 16 02/03/17 12:00 BP 136/69 02/03/17 12:00 Pulse Ox 99 02/03/17 12:00 Intake & Output 02/02/17 02/03/17 02/03/17 18:59 06:59 18:59 Intake Total 943 770 540 Output Total 650 75 500 Balance 293 695 40 Weight 73.1 kg 73.6 kg Intake: IV 463 770 Sodium Chloride 0.9% 1, 463 770 000 ml @ 75 mls/hr IV . [id number] [facility] Rx#:[id number] Oral 480 540 Output: Urine 650 75 500 Other: Voiding Method Diaper Toilet Toilet Diaper # Voids 1 1 - Labs CBC & Chem 7: 02/03/17 06:27 02/03/17 06:27 Labs: Abnormal Lab Results - Last 24 Hours (Table) 02/02/17 02/03/17 02/03/17 Range/Units 06:21 06:27 06:27 WBC 3.1 L (3.8-10.6) k/uL RBC 3.40 L (3.80-5.40) m/uL Hgb 9.7 L (11.4-16.0) gm/dL Hct 30.0 L (34.0-46.0) % Lymphocytes # 0.8 L (1.0-4.8) k/uL Chloride 113 H (98-107) mmol/L Carbon Dioxide 18 L (22-30) mmol/L BUN 28 H (7-17) mg/dL Creatinine 1.48 H (0.52-1.04) mg/dL % Saturation 13.9 L (20-50) % Assessment and Plan Plan: ASSESSMENT AND PLAN: 1. Symptomatic hypotension likely due to dehydration. 2. Indeterminate troponin leak likely due to renal dysfunction. 3. Coronary artery disease. 4. Chronic history of dizziness, which patient was placed on Antivert which has not shown improvement. 5. Patient also had a dementia and urinary incontinence with some degree of gait dysfunction. One needs to consider ruling out normal pressure hydrocephalus as well. 6. Acute kidney injury due to acute kidney injury with acute tubular necrosis, hyaline casts noted due to prerenal azotemia. 7. Anemia of unknown etiology. 8. Previous cerebrovascular accident. PLAN: No function is improving. We'll need to hold off on the LP As patient is currently on Plavix this could be done as an outpatient Patient should follow up with Dr. Taylor Repeat renal function in the a.m. continue IV fluids at this time Blood pressures are stable at this time likely discharge the patient in the next 24 hours continue ambulation
[2017-02-03] MEDS: SODIUM FERRIC GLUCONAT-SUCROSE 125 MG in SODIUM CHLORIDE 0.9% 100 ML IVPB SCH (17:35)
--- NOTE | 2017-02-03 20:38 | P.PN ---
Subjective This patient is a 89-year-old female who was admitted to Hospital for evaluation of gait imbalance and questionable dizziness. Patient has been treated for dizziness for the past several months and has been taking Antivert with no improvement in her condition. She was admitted to hospital for further evaluation of her gait disorder. She does have evidence suggesting possibility of peripheral neuropathy which may add to her unsteady gait and produce mild degree of ataxia. She was being considered for lumbar puncture but is currently on Plavix and LP has been canceled. She may follow-up in the outpatient neurology clinic for further evaluation for NPH. Patient continues to show some improvement in her overall mental status today and has been up and ambulating. She is being considered for discharge home tomorrow. She may follow-up in the outpatient neurology clinic in 3-4 weeks. Overall her dehydration has improved. She likely had some degree of orthostatic hypotension from the dehydration. She does have evidence of acute kidney injury and is being followed by nephrology. We will continue to monitor progress closely during this admission. Objective - Vital Signs Vital signs: Vital Signs Temp 96.7 F L 02/03/17 12:00 Pulse 104 H 02/03/17 16:00 Resp 16 02/03/17 16:00 BP 120/63 02/03/17 16:00 Pulse Ox 98 02/03/17 16:00 Intake & Output 02/03/17 02/03/17 02/04/17 06:59 18:59 06:59 Intake Total 770 540 Output Total 75 500 Balance 695 40 Weight 73.6 kg 73.6 kg Intake: IV 770 Sodium Chloride 0.9% 1, 770 000 ml @ 75 mls/hr IV . [id number] [facility] Rx#:[id number] Oral 540 Output: Urine 75 500 Other: Voiding Method Toilet Toilet Diaper # Voids 1 1 2 - Exam Physical examination: PHYSICAL EXAMINATION: Patient is resting comfortably in bed. VITAL SIGNS: Blood pressure is [120/63]. Heart rate is [104]. Respiration is [16 ]. Temperature is [97.0]. HEENT: Head is atraumatic, neck is supple, there were no carotid bruits. CHEST: Lungs are clear to auscultation and percussion. CARDIAC: S1, S2 normal rate and rhythm. There is no murmur. ABDOMEN: Soft and nontender. Bowel sounds are present. EXTREMITIES: There is no pedal edema. Peripheral pulses are present. Neurological examination: Patient's neurological examination is unchanged from yesterday. - Labs CBC & Chem 7: 02/03/17 06:27 02/03/17 06:27 Labs: Abnormal Lab Results - Last 24 Hours (Table) 02/03/17 02/03/17 Range/Units 06:27 06:27 WBC 3.1 L (3.8-10.6) k/uL RBC 3.40 L (3.80-5.40) m/uL Hgb 9.7 L (11.4-16.0) gm/dL Hct 30.0 L (34.0-46.0) % Lymphocytes # 0.8 L (1.0-4.8) k/uL Chloride 113 H (98-107) mmol/L Carbon Dioxide 18 L (22-30) mmol/L BUN 28 H (7-17) mg/dL Creatinine 1.48 H (0.52-1.04) mg/dL Assessment and Plan (1) Diabetic peripheral neuropathy Status: Acute Code(s): E11.42 - TYPE 2 DIABETES MELLITUS WITH DIABETIC POLYNEUROPATHY (2) Metabolic encephalopathy Status: Acute Code(s): G93.41 - METABOLIC ENCEPHALOPATHY (3) Gait disorder Status: Acute Code(s): R26.9 - UNSPECIFIED ABNORMALITIES OF GAIT AND MOBILITY (4) TIA (transient ischemic attack) Status: Acute Code(s): G45.9 - TRANSIENT CEREBRAL ISCHEMIC ATTACK, UNSPECIFIED Plan: This patient is a 89-year-old female who was admitted to hospital with weakness and unsteady gait. Patient has been complaining off and on for several months of feeling off balance. She does have evidence suggesting a diffuse peripheral neuropathy. She will be further evaluated in the outpatient neurology clinic with EMG study. At this time the patient apparently is being scheduled for a lumbar puncture to obtain opening and closing pressures. There is some concern for NPH. Patient is currently on Plavix and this is another reason to hold on lumbar puncture for this patient at this time. Patient can be further evaluated in the outpatient neurology clinic for NPH. Patient seems to be doing much better today and is more awake and alert. She has been up and ambulating today with no difficulties. We will continue close neurological follow-up of this patient during this admission. Patient being considered for discharge home soon. Her overall prognosis at this time remains guarded.
[2017-02-03] MEDS: MIRTAZAPINE 15 MG TAB PO SCH (22:23)
[2017-02-03] MEDS: ATORVASTATIN 40 MG TAB PO SCH (22:23)
[2017-02-04 07:06] LABS: Basophils % (A) 1 %; CH 28.9; CHCM 32.2; Eosinophils # (A) 0.1 k/uL (0-0.7); Eosinophils % (A) 3 %; HCT 31.8 % (34.0-46.0); HDW 2.54; HGB 10.3 gm/dL (11.4-16.0); Luc % (Auto) 3; Lymphocytes # (A) 0.9 k/uL (1.0-4.8); Lymphocytes % (A) 31 %; MCH 29.1 pg (25.0-35.0); MCHC 32.3 g/dL (31.0-37.0); Mean Platelet Volume 7.1; Monocytes # (A) 0.3 k/uL (0-1.0); Monocytes % (A) 10 %; Neutrophils # (A) 1.6 k/uL (1.3-7.7); Neutrophils % (A) 53 %; RBC 3.53 m/uL (3.80-5.40); RDW 14.9 % (11.5-15.5); WBC (Perox) 3.25
[2017-02-04 07:29] LABS: Calcium 8.9 mg/dL (8.4-10.2); Potassium 4.6 mmol/L (3.5-5.1)
[2017-02-04] MEDS: THIAMINE 100 MG TAB PO SCH (09:00)
[2017-02-04] MEDS: ASPIRIN 81 MG CHEW PO SCH (09:00)
[2017-02-04] MEDS: CLOPIDOGREL 75 MG TAB PO SCH (09:00)
[2017-02-04] MEDS: PANTOPRAZOLE 40 MG/10 ML VIAL IVP SCH (09:00)
[2017-02-04] MEDS: SODIUM FERRIC GLUCONAT-SUCROSE 125 MG in SODIUM CHLORIDE 0.9% 100 ML IVPB SCH (09:02)
[2017-02-04 10:28] VITALS: TEMP 97.1
--- NOTE | 2017-02-04 10:40 | P.PN ---
Subjective Principal diagnosis: This is a 89-year-old female seen in consultation because of acute kidney injury from low blood pressure. Additionally she was on Bactrim at the time of admission. She came in with generalized weakness. Her blood pressure was in the 80s. Creatinine has improved back to normal at 1. She has mild degree of non-gap acidosis and is currently on bicarb. She continues to have a less than normal appetite but no nausea vomiting diarrhea abdominal pain no fever chills no shortness of breath no dizziness She is also being worked up for gait imbalance and dizziness. An LP is being contemplated but on hold because of Plavix Objective - Vital Signs Vital signs: Vital Signs Temp 97.1 F L 02/04/17 08:00 Pulse 94 02/04/17 08:00 Resp 18 02/04/17 08:00 BP 137/68 02/04/17 08:00 Pulse Ox 100 02/04/17 08:00 Intake & Output 02/03/17 02/04/17 02/04/17 18:59 06:59 18:59 Intake Total 540 540 Output Total 500 Balance 40 540 Weight 73.6 kg 73.6 kg Intake: Intake, IV Titration 240 Amount Sodium Chloride 0.9% 1, 240 000 ml @ 75 mls/hr IV . [id number] [facility] Rx#:[id number] Oral 540 300 Output: Urine 500 Other: Voiding Method Toilet Toilet Diaper Diaper # Voids 1 1 On exam she is awake alert oriented comfortable. Blood pressures and vital signs are unremarkable A chin exam no JVP neck is supple no facial asymmetry Lungs are clear to auscultation percussion good air entry bilaterally. Heart sounds are remarkable for an few extrasystoles. Abdomen is soft nontender No masses felt. Extremity exam was no edema Awake alert oriented No asterixis no focal motor deficit. - Labs CBC & Chem 7: 02/04/17 06:18 02/04/17 06:18 Labs: Abnormal Lab Results - Last 24 Hours (Table) 02/04/17 02/04/17 Range/Units 06:18 06:18 WBC 3.0 L (3.8-10.6) k/uL RBC 3.53 L (3.80-5.40) m/uL Hgb 10.3 L (11.4-16.0) gm/dL Hct 31.8 L (34.0-46.0) % Lymphocytes # 0.9 L (1.0-4.8) k/uL Chloride 114 H (98-107) mmol/L Carbon Dioxide 19 L (22-30) mmol/L BUN 22 H (7-17) mg/dL Creatinine 1.18 H (0.52-1.04) mg/dL Assessment and Plan Plan: Impression. 1. Acute kidney injury from low blood pressure resolving creatinine down to 1. 2. Mild degree of non-gap acidosis from acute kidney injury resolving, she is additionally on calcium carbonate that should also help improve her acidosis 3. Gait imbalance being worked up for peripheral neuropathy Recommendation. No changes from a nephrological perspective maintained monitoring of acid base status expected to improve.
[2017-02-04] MEDS: MULTIVITAMINS, THERA 1 EACH TAB PO SCH (11:08)
[2017-02-04 13:08] VITALS: BP 146/70; PULSE 99; RESP 16
--- NOTE | 2017-02-04 19:07 | P.DS ---
Providers Date of admission: 02/01/17 16:11 Attending physician: Aguilar Lewis MD Consults: 02/01/17 16:12 Consult Physician Routine Consulting Provider: Jerica Taylor Consult Reason/Comments: TIA Do you want consulting provider notified?: Yes 02/01/17 17:25 Consult Physician Routine Consulting Provider: Amado Rapp Consult Reason/Comments: high BUN and Creat, hx of Renal dx Do you want consulting provider notified?: Yes Consult Physician Urgent Consulting Provider: Tanvir Sequeira Consult Reason/Comments: elevated Trop Do you want consulting provider notified?: Yes 02/02/17 14:18 Consult Anesthesia Routine Consulting Provider: Anesthesia,Services Consult Reason/Comments: LP to diangose NPH, Opening pressure? Primary care physician: Chelsie Franco Hospital Course: This is an 89-year-old female with a previous history of stroke comes into the hospital with acute worsening of generalized weakness. On obtaining a detailed history from the patient and the family, apparently the patient has been having significant forgetfulness over the last 3 years. Has had balance issues over the same period of time and has had urinary incontinence as well. The patient's memory has been progressively getting worse over the same period of time. Patient has had a previous stroke with right arm weakness. Patient was admitted to the hospital, was noted to have significant hypotension. Systolic blood pressure in the 80s. Patient's main complaints having generalized weakness and worsening dizziness over the last day or 2 prior to admission. Patient has had multiple bouts of loose stools on the day of admission as well. Patient today states that she is feeling significantly better and was able to ambulate without much difficulty, which is close to her baseline. Patient was also noted to have some renal dysfunction with non-anion gap metabolic acidosis as resolved. The patient has received 2 L of crystalloids in the emergency room with an improved creatinine today. 02/03/2017 states that she is improved is able to ambulate however not back to her baseline No headaches blurry vision nausea vomiting chest pain difficulty breathing abdominal pain urinary urgency or frequency is reported 02/04/17 doing well no new complaints states to have more energy PHYSICAL EXAM: GENERALLY: Patient appears to be alert, oriented x3. HEENT: The pupils are equal and reactive to light and accommodation. HEART: S1, S2 present. No murmur appreciated. LUNGS: Good air entry. No wheezing or rhonchi noted. ABDOMINAL EXAM: Soft, nontender, no organomegaly appreciated. GENITOURINARY: No Quezada in place. EXTREMITIES: Pulses can be palpated distally. Denies any tenderness on gross palpation. SKIN: There is a previous scar on the right knee consistent with knee replacement in the past. NEUROLOGICALLY: Grossly cranial nerves 2-12 intact. No motor or sensory deficits noted. Assessment and Plan Plan: ASSESSMENT AND PLAN: 1. Symptomatic hypotension likely due to dehydration. 2. Indeterminate troponin leak likely due to renal dysfunction. 3. Coronary artery disease. 4. Chronic history of dizziness, which patient was placed on Antivert which has not shown improvement. 5. Patient also had a dementia and urinary incontinence with some degree of gait dysfunction. follow up with Dr Taylor. Aldo/RICHARD plavix. can undergo a LP in the outpatient setting 6. Acute kidney injury due to acute kidney injury with acute tubular necrosis, hyaline casts noted due to prerenal azotemia. improved on discharge 7. Anemia of unknown etiology. 8. Previous cerebrovascular accident. will hold off plavix, does not have an indication. follow up with Dr Taylor Plan - Discharge Summary New Discharge Prescriptions: Continue RX: Omeprazole [PriLOSEC] 20 mg PO AC-BRKFST RX: Nitroglycerin Sl Tabs [Nitrostat] 0.4 mg SUBLINGUAL Q5M PRN #25 tab PRN Reason: Chest Pain RX: Meclizine [Antivert] 12.5 mg PO TID PRN PRN Reason: Vertigo RX: Aspirin EC [Ecotrin Low Dose] 81 mg PO DAILY RX: Lisinopril [Zestril] 10 mg PO HS tab RX: Mirtazapine [Remeron] 15 mg PO HS RX: amLODIPine [Norvasc] 5 mg PO DAILY RX: Atorvastatin [Lipitor] 40 mg PO HS #30 tab RX: Thiamine [Vitamin B-1] 100 mg PO DAILY RX: Multivitamins, Thera [Multivitamin (formulary)] 1 tab PO DAILY RX: ALPRAZolam [Xanax] 0.25 mg PO HS PRN PRN Reason: Anxiety Discontinued RX: Nitrofurantoin Monohyd/M-Cryst [Macrobid] 100 mg PO DAILY RX: Clopidogrel [Plavix] 75 mg PO DAILY #30 tab Sulfamethox-Tmp 800-160Mg [Bactrim DS 800-160 mg] 1 tab PO Q12HR Discharge Medication List RX: Omeprazole [PriLOSEC] 20 mg PO AC-BRKFST 06/08/14 [History] RX: Nitroglycerin Sl Tabs [Nitrostat] 0.4 mg SUBLINGUAL Q5M PRN #25 tab [Rx] RX: Aspirin EC [Ecotrin Low Dose] 81 mg PO DAILY 09/21/16 [History] RX: Meclizine [Antivert] 12.5 mg PO TID PRN 09/21/16 [History] RX: Lisinopril [Zestril] 10 mg PO HS tab 09/23/16 [Rx] RX: Mirtazapine [Remeron] 15 mg PO HS 12/08/16 [History] RX: amLODIPine [Norvasc] 5 mg PO DAILY 12/08/16 [History] RX: Atorvastatin [Lipitor] 40 mg PO HS #30 tab 12/10/16 [Rx] RX: ALPRAZolam [Xanax] 0.25 mg PO HS PRN 02/01/17 [History] RX: Multivitamins, Thera [Multivitamin (formulary)] 1 tab PO DAILY 02/01/17 [ History] RX: Thiamine [Vitamin B-1] 100 mg PO DAILY 02/01/17 [History] Follow up Appointment(s)/Referral(s): Kelsey Taylor MD [STAFF PHYSICIAN] - 1 Week (Please call office to make apppointment regarding lumbar puncture) Chelsie Franco DO [Primary Care Provider] - 1-2 days (Please call office to make apppointment ) Patient Instructions/Handouts: Lumbar Puncture (DC) Discharge Disposition: HOME SELF-CARE
== END 2017-02-04 14:31 | disposition home or self-care (01) | DRG 682 ==
LOC: EC 11:40 → 6SEL 16:11
PROVIDERS: ADMIT Internal Medicine; ATTEND Internal Medicine
DX: N17.0 Acute kidney failure with tubular necrosis (principal); G93.41 Metabolic encephalopathy; E87.2 Acidosis; E11.42 Type 2 diabetes mellitus with diabetic polyneuropathy; R47.01 Aphasia; F03.90 Unspecified dementia, unspecified severity, without behavioral disturbance, psychotic disturbance, mood disturbance, and anxiety; E87.5 Hyperkalemia; I65.23 Occlusion and stenosis of bilateral carotid arteries; E86.0 Dehydration; R32 Unspecified urinary incontinence; I25.10 Atherosclerotic heart disease of native coronary artery without angina pectoris; K21.9 Gastro-esophageal reflux disease without esophagitis; E78.5 Hyperlipidemia, unspecified; F41.9 Anxiety disorder, unspecified; I10 Essential (primary) hypertension; D50.9 Iron deficiency anemia, unspecified; I95.1 Orthostatic hypotension; R27.0 Ataxia, unspecified; M19.91 Primary osteoarthritis, unspecified site; I25.2 Old myocardial infarction; Z96.651 Presence of right artificial knee joint; Z86.73 Personal history of transient ischemic attack (TIA), and cerebral infarction without residual deficits; Z88.0 Allergy status to penicillin; Z90.710 Acquired absence of both cervix and uterus; Z98.41 Cataract extraction status, right eye; Z98.42 Cataract extraction status, left eye; Z79.02 Long term (current) use of antithrombotics/antiplatelets; Z79.82 Long term (current) use of aspirin; Z79.899 Other long term (current) drug therapy
CPT/HCPCS: 36415; 70450; 71020; 80048; 80053; 80061; 81001; 82550; 82553; 83036; 83540; 83550; 83605; 84484; 85025; 85610; 85652; 85730; 86140; 93005; 93306; 93880; 94760; 95819; 96360; 96361; 99285

== ENCOUNTER → 2017-03-23 | Outpatient (CLI) | payer MEDICARE, BC ==
--- NOTE | 2017-03-23 15:12 | FL ---
EXAMINATION TYPE: FL cystogram DATE OF EXAM: 03/23/2017 COMPARISON: NONE HISTORY: Dysuria TECHNIQUE: Cystogram was performed. Catheter was placed by the departmental nurse. 300 cc of Cystogra fin was instilled into the urinary bladder in a retrograde manner. FINDINGS: The urinary bladder demonstrates a smooth configuration. There is no evidence for filling d efect. No evidence for diverticulum or mass. I do not see evidence for reflux during the course of th e examination. Partial emptying was noted of approximately half the urinary bladder volume. IMPRESSION: Incomplete emptying of the urinary bladder. Examination is otherwise unremarkable.
== END | disposition home or self-care (01) ==
LOC: RADFLWHC 13:27
PROVIDERS: ATTEND Nurse Practitioner Family
DX: R30.0 Dysuria (principal)
CPT/HCPCS: 50684; 74430; Q9962